=== PATIENT | female | born 1970 | race Caucasian/White ===

== ENCOUNTER 2019-10-09 11:49 | Emergency (ER) | payer OTHER, SELFPAY ==
--- NOTE | ~2019-10-09 | XR_ITS ---
EXAMINATION: XR knee RT min 4V DATE: 10/09/2019 13:51 INDICATION: Chronic right knee pain. TECHNIQUE: 4 views of right knee were obtained. COMPARISON: Right knee radiographs 03/02/2011 FINDINGS: Bone alignment is normal. No fracture. There is mild osteoarthritis of medial and lateral c ompartments and moderate osteoarthritis of patellofemoral compartment. No knee joint effusion. IMPRESSION: 1. Moderate right knee osteoarthritis. Reviewed, dictated and finalized at location A. G[employer] MANU[employer]URING
--- NOTE | ~2019-10-09 | US_ITS ---
EXAMINATION: US venous doppler LE RT DATE: 10/09/2019 13:19 INDICATION: Right lower limb pain and swelling TECHNIQUE: Grayscale ultrasound images without and with compression and Doppler ultrasound images of the right lower extremity veins were obtained. COMPARISON: Right knee radiographs dated 03/02/2011 FINDINGS: The visualized portions of right common femoral vein, profunda (deep) femoral vein, femoral vein, pop liteal vein, peroneal trunk, posterior tibial veins, peroneal veins, gastrocnemius vein and greater s aphenous vein outflow are patent. 3.1 x 1.0 x 2.3 cm Escoto's cyst at the popliteal fossa. Incidental chronic small shadowing heterotopic ossicle in the subcutaneous tissues at the antrum medial aspect o f the proximal right lower leg with correlate seen on the prior radiographs from 2010.. IMPRESSION: 1. No deep venous thrombosis in the right lower limb. 2. Small Escoto's cyst. Reviewed, dictated and finalized at location A. OSURGERY PHYSICIAN
[2019-10-09 12:37] VITALS: BP 175/109; PULSE 72; RESP 18; TEMP 36.4; O2SAT 99
--- NOTE | 2019-10-09 13:32 | ED.EXTPRO ---
HPI - Extremity Problem General Chief complaint: Extremity Injury, Lower Stated complaint: R LEG SWELLING Time Seen by Provider: 10/09/19 13:20 Source: patient and RN notes reviewed Mode of arrival: ambulatory Limitations: no limitations History of Present Illness HPI Narrative: Pt is a 49 y/o female who presents to the ED with c/o intermittent rt lower leg swelling. She notes that she has a Hx of laser surgery on her rt knee. Pt states that she has had intermittent swelling in her rt medial pacheco for awhile. She reports pain in her rt medial pacheco radiating into her rt calf. Pt denies any fever or chills. MD Complaint: extremity swelling Pain Consistency: intermittent Location: right and lower extremity Associated symptoms: other (pain in rt medial pacheco radiating into rt calf) Related Data Allergies Allergy/AdvReac Type Severity Reaction Status Date / Time iodine Allergy Unknown Verified 03/12/18 15:12 latex Allergy Unknown Verified 03/12/18 15:13 Penicillins Allergy Unknown Verified 03/12/18 15:13 Bumble Bee Allergy Unknown UNKNOWN Uncoded 11/06/18 00:03 Review of Systems Review of Systems: All systems reviewed & are unremarkable except as noted in HPI and below Constitutional: Constitutional: Denies chills and Denies fever(s) Cardiovascular: Cardiovascular: Reports leg edema (swelling in rt lower leg) Musculoskeletal: Musculoskeletal: Reports other (pain in rt medial pacheco radiating into rt calf) [facility] Past Medical History Medical History Asthma Back pain Bronchitis Depression GERD (gastroesophageal reflux disease) HTN (hypertension) Osteoarthritis Pneumonia Surgical History Surgical History History of hysterectomy History of placement of ear tubes bilateral ears Hx of cervical discectomy Hx of section x4 Hx of right knee surgery Hx of tonsillectomy Hx of tubal ligation Family History Family History (Updated 03/12/18 @ 15:18 by DOCTOR UNKNOWN) Mother Hypertension Social History Social History Smoking status: Never smoker Alcohol intake: never Gender identity (if verbalized by the patient): Female Comments PCP is Dr. Gaytan. Exam Narrative: Exam Narrative: APPEARANCE: No acute distress, nontoxic, resting in bed Eyes: EOMI HEENT: Normocephalic, atraumatic, RESPIRATORY: No respiratory distress MUSCULOSKELETAl: Tender to palpation of the right medial inferior knee with mild swelling, no overlying ecchymosis and tender over posterior knee, no tenderness over medial lateral knee, full flexion extension over right knee without pain, posterior tibialis pulse 2+, neurovascular intact NEURO: Awake and alert. Following commands, speech normal, no focal deficits SKIN:: Warm, dry. Normal Color no rash or lesions Course Course Emergency Course: Patient states for the past 10 years she has had intermittent swelling in this region that will come and go. Discussed with patient results of workup and diagnosis. Discussed need for follow-up with primary care, proper use of medication, and reasons to return to the emergency department. Patient understands and agrees to current treatment plan Vital Signs Vital signs: Vital Signs Temperature 97.5 F L 10/09/19 12:37 Pulse Rate 72 10/09/19 12:37 Respiratory Rate 18 10/09/19 12:37 Blood Pressure 175/109 H 10/09/19 12:37 Pulse Oximetry 99 10/09/19 12:37 Temperature 97.6 F 10/09/19 13:40 Pulse Rate 70 10/09/19 13:40 Respiratory Rate 16 10/09/19 13:40 Blood Pressure 169/70 H 10/09/19 13:40 Pulse Oximetry 99 10/09/19 13:40 MDM - Extremity (Nontraumatic) Imaging Data Radiologist's impression: Impressions Venous Doppler Study 10/09/19 13:22 IMPRESSION: 1. No deep venous thrombosis in the right lower limb. 2. Small Escoto's cyst. Knee X-Ray 10/09/19 1
[2019-10-09 13:40] VITALS: BP 169/70; PULSE 70; RESP 16; TEMP 36.4; O2SAT 99
== END 2019-10-09 14:31 | disposition home or self-care (01) ==
PROVIDERS: Emergency Provider Emergency Medicine; PCP Family Medicine
DX: M71.21 Synovial cyst of popliteal space [Baker], right knee (principal); I10 Essential (primary) hypertension; M17.11 Unilateral primary osteoarthritis, right knee; J45.909 Unspecified asthma, uncomplicated; K21.9 Gastro-esophageal reflux disease without esophagitis
CPT/HCPCS: 73564; 93971; 99284

== ENCOUNTER 2020-06-01 23:53 | Emergency (ER) | payer OTHER, SELFPAY ==
--- NOTE | ~2020-06-01 | XR_ITS ---
EXAMINATION: XR foot LT min 3V DATE: 06/02/2020 00:22 INDICATION: Dorsal left foot pain TECHNIQUE: Dorsoplantar, two oblique and lateral views of the left foot were obtained. COMPARISON: None. FINDINGS: Alignment is normal. No fracture. For progression of mild to moderate osteoarthritis at the talonavic ular joint with increasing nonuniform joint space narrowing at the dorsal medial side of the joint sp renay and with prominent dorsal marginal osteophytes. Remaining joint spaces appear relatively preserve d. No cortical erosions or periosteal reaction. Moderate-sized Achilles and plantar calcaneal spurs. Soft tissues are unremarkable. No ankle joint effusion. IMPRESSION: 1. Mild to moderate talonavicular osteoarthritis. 2. Achilles and plantar calcaneal enthesophytes. Reviewed, dictated and finalized at location A.
[2020-06-01 23:59] VITALS: BP 149/86; PULSE 85; RESP 18; TEMP 36.9; O2SAT 100
[2020-06-02 00:45] VITALS: BP 164/99; PULSE 96; RESP 18; O2SAT 100
[2020-06-02] MEDS: HYDROcodone/acetaminophen (*CRX) 5-325 MG TABLET 1 TAB PO (01:17)
--- NOTE | 2020-06-02 02:04 | ED.LOWEXIN ---
HPI - Extremity Injury (Lower) General Chief Complaint: Extremity Injury, Lower Stated Complaint: left foot pain Time Seen by Provider: 06/02/20 00:56 History of Present Illness HPI Narrative: Patient is a 49-year-old female who presents ER with left midfoot pain. Reports she has been standing a lot at her new job and is caused increase pain. She can bear weight. 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 No new numbness or tingling. No physical trauma to the foot. Related Data Allergies Allergy/AdvReac Type Severity Reaction Status Date / Time iodine Allergy Unknown Verified 03/12/18 15:12 latex Allergy Unknown Verified 03/12/18 15:13 Penicillins Allergy Unknown Verified 03/12/18 15:13 Bumble Bee Allergy Unknown UNKNOWN Uncoded 11/06/18 00:03 Review of Systems Musculoskeletal: Musculoskeletal: Denies arthralgias and Denies joint swelling Comments: Foot pain Integumentary/Breasts: Skin/Breast: Denies rash Comments: No redness of the foot Neurologic: Denies focal weakness and Denies numbness PMFSH Family History Family History (Updated 03/12/18 @ 15:18 by DOCTOR UNKNOWN) Mother Hypertension Social History Social History Smoking status: Never smoker Alcohol intake: never Gender identity (if verbalized by the patient): Female Exam Narrative: Exam Narrative: GENERAL: Well-appearing, well-nourished, and in no acute distress. HEAD: Normocephalic, atraumatic. EXTREMITIES: Normal range of motion. Mild tenderness over the midfoot on the left at the base of metatarsals 2/3. No plantar tenderness. No ankle tenderness. Normal pulses and sensation. SKIN: Warm, dry, no rash. NEURO: Alert and oriented x3. PSYCH: Normal mood and affect. Course Course Emergency Course: Unremarkable x-ray. Discharge home with a small supply of Savage and steroid burst. Vital Signs Vital signs: Vital Signs Temperature 98.4 F 06/01/20 23:59 Pulse Rate 85 06/01/20 23:59 Respiratory Rate 18 06/01/20 23:59 Blood Pressure 149/86 H 06/01/20 23:59 Pulse Oximetry 100 06/01/20 23:59 Temperature 98.4 F 06/01/20 23:59 Pulse Rate 96 06/02/20 00:45 Respiratory Rate 18 06/02/20 00:45 Blood Pressure 164/99 H 06/02/20 00:45 Pulse Oximetry 100 06/02/20 00:45 MDM - Extremity Injury (Lower) Imaging Data My impression: XR Foot Left: No acute process. Discharge Plan Discharge Clinical Impression: Acute foot pain Patient Disposition: Home, Self-Care Condition: Stable Instructions: Metatarsalgia (DC) Additional Instructions: He may be have recurrent inflammation of the joint in your midfoot. Take the Medrol Dosepak to help with any inflammation and take Savage as needed for pain. You may need to follow-up with your primary care doctor or biofuels processing technician for further treatment and evaluation. Return the ER if you have chest pain with shortness of breath, you cannot keep down food or water, you have additional concerns. Prescriptions: New methylprednisolone [Medrol (Sree)] 4 mg tablets,dose pack See Rx Instructions .ROUTE .COMPLEX Qty: 21 RF: 0 hydrocodone-acetaminophen 5-325 mg tablet 1 tablet PO Q6H PRN (Reason: pain) Qty: 10 RF: 0 Follow-up/Referrals: Lukas,Karlene Jesus MD [Primary Care Provider] - 1 Week
[2020-06-02] MEDS: IBUPROFEN 600 MG TABLET PO (02:18)
[2020-06-02 02:57] VITALS: BP 132/84; PULSE 79; RESP 18; O2SAT 99
== END 2020-06-02 02:59 | disposition home or self-care (01) ==
PROVIDERS: Emergency Provider Emergency Medicine; PCP Family Medicine
DX: M79.672 Pain in left foot (principal)
CPT/HCPCS: 73630; 99283; A9270

== ENCOUNTER 2020-06-09 18:05 | Outpatient (CLI) | payer OTHER, SELFPAY ==
--- NOTE | ~2020-06-09 | XR_ITS ---
EXAMINATION: XR lumbar spine 2-3V DATE: 06/09/2020 18:38 INDICATION: Lumbago and sciatica. TECHNIQUE: 3 views of lumbar spine were obtained. COMPARISON: Lumbar spine radiographs 01/13/2016 FINDINGS: There is 5 degrees levocurvature of lumbar spine. There is 6 mm anterolisthesis of L4 on L5 . Vertebral body heights are normal. There is moderately decreased disc height at L2-L3 and mildly de creased disc height at L4-L5. There are endplate osteophytes at all levels. There is multilevel facet joint osteoarthritis, severe at L4-L5. IMPRESSION: 1. Moderate lumbar spondylosis. Reviewed, dictated and finalized at location A.
== END 2020-06-09 18:06 | disposition home or self-care (01) ==
PROVIDERS: PCP Family Medicine; Visit Provider Physician Assistant
DX: M54.42 Lumbago with sciatica, left side (principal); M47.816 Spondylosis without myelopathy or radiculopathy, lumbar region
CPT/HCPCS: 72100

== ENCOUNTER 2020-11-02 14:01 | Outpatient (CLI) | payer OTHER, SELFPAY ==
--- NOTE | ~2020-11-02 | US_ITS ---
US joint non vasc comp LT 11/02/2020 14:28 Indication: Synovial cyst of the popliteal space Procedure: High-resolution ultrasound of the left popliteal fossa Comparison: No prior studies for comparison. Findings: There is normal heterogeneous echotexture in the popliteal fossa without focal mass, fluid collection or cysts. Impression: 1: Normal soft tissue ultrasound of the left popliteal fossa. Reviewed, dictated and finalized at location A. PRESIDENT FIXED INCOME Impression: 1: Normal soft tissue ultrasound of the left popliteal fossa.
== END 2020-11-02 14:02 | disposition home or self-care (01) ==
PROVIDERS: PCP Family Medicine; Visit Provider Physician Assistant
DX: M71.22 Synovial cyst of popliteal space [Baker], left knee (principal)
CPT/HCPCS: 76881

== ENCOUNTER 2021-04-19 14:15 | Outpatient (RCR) | payer OTHER, SELFPAY ==
--- NOTE | 2021-03-09 09:55 | PTOPEVAL ---
Thank you for referring Erica Lozano to [facility].? The patient is scheduled to be seen for therapy?2 x/week for 6 weeks. Please review, sign, date and return this plan of care CARLOS. I agree with and certify that the following plan of care is medically necessary. Referring Physician Date Attending Provider: Dr Mayco Barnett Problem Diagnosis lumbar radiculopathy Onset 06/16 Additional Evaluation Detail 5 degrees levocurvature of lumbar spine. There is 6 mm anterolisthesis of L4 on L5. Vertebral body heights are normal. There is moderately decreased disc height at L2-L3 and mildly decreased disc height at L4-L5. There are endplate osteophytes at all levels. There is multilevel facet joint osteoarthritis, severe at L4-L5. Subjective Information Pt states she has been having Query Text:As Reported By Patient/ back pain since May 2020 and Family is 1st now being sent to therapy. She had sciatic nerve pain. She was performing exercises provided by MD, but pain was increasing. She was referred to pain management to address her symptoms. She received an injection with only 2 days relief. She was given medication without relief of symptom. She was seen by a chiropractor with only 1 day relief of symptoms. She is unable to perform daily task due to pain. She reports limitations with all daily task, standing, walking. Reports pain radiating from low back to left buttock and leg region. Increased pain with attempting to sleep. She is using a TENS unit with only slight relieft Pain Assessment Pain Scale Used Numeric (1 - 10) Self Report Pain Assessment Lower Back Reported Pain Level 9 Pain Description Burning,Numbness,Radiating, Tingling Pain Radiation Left Leg Pain Frequency Chronic,Continuous Lowest
--- NOTE | 2021-03-30 16:05 | PTOPEVAL ---
Physical therapy progress Note Thank you for referring Erica Lozano to [facility].? Erica has received 6 therapy visits to address her back pain. She is progressing towards her therapy goals with improved pain, improved trunk motion, and improved strength. She is performing her HEP 2x/day. She requires additional skilled therapy services to achieve remaining therapy goals and progress her HEP for discharge. The patient is scheduled to be seen for therapy? 2 x/week for 3 weeks. Attending Provider: Dr. Mayco Barnett MD Diagnosis lumbar radiculopathy Onset 06/16 Additional Evaluation Detail 5 degrees levocurvature of lumbar spine. There is 6 mm anterolisthesis of L4 on L5. Vertebral body heights are normal. There is moderately decreased disc height at L2-L3 and mildly decreased disc height at L4-L5. There are endplate osteophytes at all levels. There is multilevel facet joint osteoarthritis, severe at L4-L5. Subjective Information She reports slight improvement Query Text:As Reported By Patient/ of symptoms with therapy. She Family is performing HEP 2x/day. She remains limited with normal daily task, but she is able to accomplish required task at home without break. She is able to stand for up to 30 min. She is tolerating sleeping longer before pain increases. Reports continued radiating from low back to left buttock and leg region. She is using a TENS unit with only slight relieft Pain Assessment Self Report Pain Assessment Lower Back Reported Pain Level 5 Pain Description Radiating,Sharp Pain Radiation Left Leg Pain Frequency Chronic,Continuous Lowest Pain Intensity 5 Greatest Pain Intensity 8 Pain Aggravating Factors ADL's,Bending,Exercise/ Activity,Lifting,Walking, Weight Bearing/Standing Cervical and Lumbar ROM Lumbar ROM Lumbar Flexion Active Mid Wei:Hands to: Lateral Flexion lateral knee joint line:Active Hands to: Lumbar Comments pain with left lateral flex able to achieve trunk in midline position Cervical and Lumbar Muscle Testing Lumbar Strength Upper Abdominal
--- NOTE | 2021-04-07 11:29 | PCPTNOTE ---
Patient called & cancelled scheduled appointment this date due to in family.
--- NOTE | 2021-04-14 14:48 | PCPTNOTE ---
Patient arrived 1 hour past treatment time. Patient reports she wrote her appointment down at the wrong time and would be at her next appointment on Monday.
--- NOTE | 2021-04-21 12:45 | PCPTNOTE ---
Patient did not show up for scheduled appointment this date. Will plan to DC since this was her 4 no show/cancel visit.
--- NOTE | 2021-04-26 11:15 | PCPTNOTE ---
Admitting Provider: Attending Provider: PHYSICIAN NOT ON STAFF Patient:Erica Lozano Date of :1970 Physical Therapy Discharge Note Patient has not returned for any further treatments since 04/19/2021, therefore she will be discharged at this time. Patient?s initial visit was on 03/09/2021 08:30 and she had a total of 6 visits with 4 no show/cancelled visits. The goals have been not met at this time due to limited therapy visits received. Thank you for referring this patient to [facility]. Please review, sign, date and return this discharge summary CARLOS. I have been updated about the patient's current status and I agree with discharge from the above service at this time. Referring Physician Date
== END 2021-04-26 17:22 | disposition home or self-care (01) ==
LOC: ANHPT 14:15
PROVIDERS: PCP Family Medicine
DX: M54.16 Radiculopathy, lumbar region (principal)
CPT/HCPCS: 97014; 97110; 97140; 97162; 97163; G0283

== ENCOUNTER 2021-07-20 15:00 | Outpatient (RCR) | payer OTHER, SELFPAY ==
--- NOTE | 2021-07-14 16:05 | PTOPEVAL ---
Thank you for referring Erica Lozano to [facility].? The patient is scheduled to be seen for therapy? 1-2 x/week for 6 weeks. Please review, sign, date and return this plan of care CARLOS. I agree with and certify that the following plan of care is medically necessary. Referring Physician Date Referring Provider: Dr. Agnes Monteiro MD Diagnosis morbid obesity Onset 06/16 Additional Evaluation Detail Pt was seen for 9 previous therapy visits to address chronic back pain. X-ray: There is 5 degrees levocurvature of lumbar spine. There is 6 mm anterolisthesis of L4 on L5. Vertebral body heights are normal. There is moderately decreased disc height at L2-L3 and mildly decreased disc height at L4-L5. There are endplate osteophytes at all levels. There is multilevel facet joint osteoarthritis, severe at L4-L5. IMPRESSION: Subjective Information She is not performing her HEP Query Text:As Reported By Patient/ from previous therapy. She Family does not perform a walking or fitness program. She reports she has constant pain that improves only with ice and medication. Her MD wants her to have pool therapy for weight loss to attempt back surgery next surgery. She did use a rollator last year due to pain. Her daughter performs scrap preparation supervisor. Cooking is microwave cooking. She performs limited community walking due to pain. She is limited with prolonged standing, sitting, and lifting task. Pain Assessment Lower Back Reported Pain Level 7 Pain Description Numbness,Radiating,Sharp, Tingling Pain Radiation Left Leg Radicular Pain Location to upper leg Pain Frequency Chronic,Continuous Lowest Pain Intensity 5 Greatest Pain Intensity 9 Pain Aggravating Factors B
--- NOTE | 2021-07-27 13:32 | PCPTNOTE ---
Patient called & cancelled scheduled appointment this date due to not feeling well. This is Pt's first CX.
--- NOTE | 2021-07-29 14:56 | PCPTNOTE ---
Patient called & cancelled scheduled appointment this date due to falling asleep and being unable to make it in time for her appointment.
--- NOTE | 2021-08-11 10:12 | PCPTNOTE ---
Patient did not show up for scheduled appointment this date. Called & had to leave a message.
--- NOTE | 2021-08-16 13:44 | PCPTNOTE ---
Patient did not show up for scheduled appointment this date; left voicemail for reminder on next appointment , August 24 @ 12:30, stating if she is not present for next appointment she will be discharged and will then need a new order to return to therapy. Also, left call back number if she had any further questions.
--- NOTE | 2021-08-24 12:44 | PCPTNOTE ---
Patient did not show up for scheduled appointment this date. Will DC pt, due to exceeding no show/cancelation policy.
--- NOTE | 2021-08-24 12:49 | PCPTNOTE ---
Admitting Provider: Attending Provider: Dr. Agnes Monteiro Patient:Erica Lozano Date of :1970 Physical Therapy Discharge Summary Patient has not returned for any further treatments since 07/20/2021, therefore she will be discharged at this time. Patient?s initial visit was on 07/14/2021 14:30 and she had a total of 2 visits with 3 cancelled visits and 3 no show. . The goals have been not met due to attending only 2 visits. Thank you for referring this patient to [facility]. Please review, sign, date and return this discharge summary CARLOS. I have been updated about the patient's current status and I agree with discharge from the above service at this time. Referring Physician Date
== END 2021-08-24 15:48 | disposition home or self-care (01) ==
LOC: ANHPT 15:00
PROVIDERS: PCP Family Medicine
DX: E66.01 Morbid (severe) obesity due to excess calories (principal)
CPT/HCPCS: 97113; 97163

== ENCOUNTER 2021-08-06 14:52 | Outpatient (CLI) | payer OTHER, SELFPAY ==
--- NOTE | 2021-08-06 15:26 | ECG_ITS ---
Measurements Intervals [place] Rate: 63 P: 37 NV: 166 QRS: -24 QRSD: 86 T: 46 QT: 402 QTc: 415 Interpretive Statements SINUS RHYTHM LOW QRS VOLTAGE IN PRECORDIAL LEADS VOLTAGE CRITERIA FOR LVH BORDERLINE R WAVE PROGRESSION, ANTERIOR LEADS INFERIOR INFARCT, AGE INDETERMINATE BASELINE ARTIFACT- I, III, AVL, AVF ABNORMAL ECG Electronically Signed On 08-06-2021 16:39:02 MANUFACTURING AREA MANAGER by Get Aguero D.O.
== END 2021-08-06 14:53 | disposition home or self-care (01) ==
LOC: ANHIMG 14:55
PROVIDERS: PCP Physician Assistant; Visit Provider Physician Assistant
DX: Z51.81 Encounter for therapeutic drug level monitoring (principal); Z79.899 Other long term (current) drug therapy; R94.31 Abnormal electrocardiogram [ECG] [EKG]
CPT/HCPCS: 93005

== ENCOUNTER 2022-05-19 16:33 | Observation (INO) | payer OTHER, SELFPAY ==
--- NOTE | ~2022-05-19 | CT_ITS ---
EXAMINATION: CT abdomen pelvis wo con DATE: 05/19/2022 22:48 INDICATION: Left upper quadrant pain. Flank pain. Fatigue. TECHNIQUE: Computed tomography (CT) of the abdomen and pelvis was performed without intravenous contr ast. The dose-length product was 1731.84 mGy-cm. Automated exposure control and iterative reconstruct ion technique were employed. COMPARISON: CT dated 11/06/2018. FINDINGS: There is a stable 5 mm fissural nodule on the left. Dependent atelectasis of the lung bases . Heart size normal. No significant pleural or pericardial effusion. No significant vascular abnormal ity. No lymphadenopathy. Normal appendix. The liver, spleen, adrenal glands and left kidney are unremarkable. There is a 3 mm nonobstructing ri ght renal stone. There is thickening of the pancreatic head with surrounding inflammation, consistent with acute pancreatitis. Nonobstructive bowel gas pattern. No abnormal pelvic masses or fluid collec tions. No lymphadenopathy. Mild lumbar spondylosis. Mild osteoarthritis of the hips. Status post hyst erectomy. IMPRESSION: 1. Acute pancreatitis. 2: Nonobstructing right nephrolithiasis. Reviewed, dictated and finalized at location A.
[2022-05-19 17:05] VITALS: BP 175/100; PULSE 84; RESP 20; TEMP 36.5; O2SAT 99
[2022-05-19 17:26] LABS: Basophils Percent Auto 0.4 % (0.2-1.2); Eosinophils Absolute Auto 0.2 K/mm3 (0-0.3); Hematocrit 45.8 % (37.0-47.0); Immature Granulocyte Absolute 0.04 K/mm3 (0.00-0.031); Immature Granulocyte Percent A 0.5 % (0-0.5); Lymphocytes Percent Auto 19.6 % (18.3-44.2); Mean Corpuscular HGB Conc 32.8 g/dl (32-36); Mean Corpuscular Hemoglobin 29.9 pg (26-34); Mean Corpuscular Volume 91.2 fl (80-100); Mean Platelet Volume 10.2 fl (7.4-10.4); Monocytes Absolute Auto 0.5 K/mm3 (0.1-0.6); Neutrophils Absolute Auto 5.8 K/mm3 (1.3-6.7); Neutrophils Percent Auto 71.5 % (45.5-73.1); Platelet Count Result 229 k/mm3 (150-375); Red Blood Count 5.02 M/mm3 (4.2-5.4); Red Cell Distribution Width 14.2 % (11.5-14.5); White Blood Count 8.2 K/mm3 (4.5-10.0)
[2022-05-19 17:30] LABS: Alanine Aminotransferase 34 U/L (6-35); Albumin Level 4.3 g/dL (3.5-5.1); Alkaline Phosphatase 127 U/L (38-126); Anion Gap 9 mmol/L (8-16); Aspartate Amino Transferase 33 U/L (14-36); Bilirubin,Total 0.9 mg/dL (0.2-1.3); Blood Urea Nitrogen 12 mg/dL (7-17); Calcium 9.7 mg/dL (8.4-10.2); Carbon Dioxide 29 mmol/L (22-30); Chloride 101 mmol/L (98-107); Estimated CRCL calculation 146 ml/min; Estimated Glomerular Filt Rate > 60; Glucose 102 mg/dL (65-110); Lipase 56 U/L (23-300); Potassium 3.3 mmol/L (3.4-5.0); Sodium 139 mmol/L (137-145)
[2022-05-19 17:40] LABS: Appearance Urine Cloudy (Clear); Bilirubin Urine 3+ (Negative); Color Urine Amber (Yellow); Glucose Urine UA Negative (Negative); Ketones Urine 4+ mg/dL (Negative); Leukocyte Esterase Ur Negative LEU/UL (Negative); Nitrate Urine Negative (Negative); Protein Urine 2+ mg/dL (Negative); Specific Grav Ur 1.025 (1.001-1.035)
[2022-05-19 17:53] LABS: Add Urine Microscopic? YES; Blood Urine Trace-Intact (Negative)
[2022-05-19 17:55] LABS: Bacteria Urine Trace /hpf; Mucus Urine Heavy /lpf; Squamous Epithelial Cell Urine Many /hpf (Few); WBC Urine 21-30 /hpf
--- NOTE | 2022-05-19 19:12 | ED.ABDPAIN ---
HPI - Abdominal Pain General Chief Complaint: Abdominal Pain <Sveta Garnica MD - Last Filed: 06/06/22 12:04> Stated Complaint: upper abd pain x 3 days <Sveta Garnica MD - Last Filed: 06/06/22 12:04> Time Seen by Provider: 05/19/22 19:11 <Sveta Garnica MD - Last Filed: 06/06/22 12:04> History of Present Illness HPI narrative: Patient is a 51-year-old female with a history of hypertension, hyperlipidemia presenting with abdominal pain. Patient states that for the last 2 days she has had left upper quadrant pain that radiates to her epigastrium and right upper quadrant. States that it is associated with nausea and decreased appetite. Denies vomiting. Patient states that she had a normal bowel movement this morning. She denies fevers, headache, chest pain, shortness of breath, cough, flank pain, dysuria, leg swelling. <Sveta Garnica MD - Last Filed: 06/06/22 12:04> Related Data Home Medications: Home Medications Medication Instructions Recorded Confirmed albuterol sulfate 2.5 mg/3 mL 2.5 mg inhalation Q4H PRN SOB 05/20/22 05/20/22 (0.083 %) solution for nebulization celecoxib 100 mg capsule 100 mg PO BID 05/20/22 05/20/22 hydrochlorothiazide 25 mg tablet 25 mg PO DAILY 05/20/22 05/20/22 hydrocodone 5 mg-acetaminophen 325 1 tablet PO Q6H PRN Pain (Scale 05/20/22 05/20/22 mg tablet Score 4-6) pregabalin 200 mg capsule 200 mg PO BID 05/20/22 05/20/22 <Sveta Garnica MD - Last Filed: 06/06/22 12:04> Allergies/Adverse Reactions: Allergies Allergy/AdvReac Type Severity Reaction Status Date / Time iodine Allergy Unknown Rash Verified 05/19/22 19:29 latex Allergy Unknown Unknown Verified 05/19/22 19:29 Penicillins Allergy Unknown Unknown Verified 05/19/22 19:29 Bumble Bee Allergy Unknown UNKNOWN Uncoded 11/06/18 00:03 <Sveta Garnica MD - Last Filed: 06/06/22 12:04> Review of Systems Review of Systems: All systems reviewed & are unremarkable except as noted in HPI and below <Sveta Garnica MD - Last Filed: 06/06/22 12:04> PMFSH Past Medical History Medical History: Medical History (Updated 05/20/22 @ 06:19 by KELLY Prakash) Asthma Back pain Bronchitis Depression She stated that she was depressed after she got . GERD (gastroesophageal reflux disease) HTN (hypertension) No longer taking medication Osteoarthritis Pneumonia <Sveta Garnica MD - Last Filed: 06/06/22 12:04> Surgical History Surgical History: Surgical History (Updated 05/20/22 @ 00:51 by Janet Juares NP) History of hysterectomy History of placement of ear tubes bilateral ears Hx of cervical discectomy Hx of section x4 Hx of cholecystectomy Hx of right knee surgery Hx of tonsillectomy Hx of tubal ligation <Sveta Garnica MD - Last Filed: 06/06/22 12:04> Family History Family History: Family History Mother Hypertension <Sveta Garnica MD - Last Filed: 06/06/22 12:04> Social History Social History: Social History (Updated 05/20/22 @ 00:55 by Janet Juares NP) Social History: The patient is and has 4 children. She lives home alone. She is disabled. She denies ever smoking. She rarely drinks. She denies any marijuana or other illicit drugs. She does not have a durable power hand clerical verifier for healthcare. Code status full code Smoking status: Never smoker Alcohol intake: never Substance use: never Gender identity (if verbalized by the patient): Female Spiritual care concerns: No <Sveta Garnica MD - Last Filed: 06/06/22 12:04> Exam Narrative: GENERAL: Well-appearing, well-nourished, and in no acute distress. HEAD: Normocephalic, atraumatic. EYES: PERRLA and EOMI. ENT: Nares clear, no rhinorrhea or epistaxis. Mucous membranes moist. NECK: Supple. CHEST: Clear to auscultation. No respiratory distress.
[2022-05-19] MEDS: SODIUM CHLORIDE 0.9% IV 1,000 ML 999 ML IV CONT (19:42)
[2022-05-19] MEDS: ONDANSETRON INJ 4 MG/2 ML VIAL IV PUSH (19:42)
[2022-05-19] MEDS: fentaNYL CITRATE INJ (*CRX) 100 MCG/2 ML VIAL IV PUSH ×2 (19:42→21:41)
[2022-05-19] MEDS: BELLADONNA ALK/PHENOB ELIX 10 ML, MAG HYDROX/ALUMINUM HYD/SIMETH 30 ML, LIDOCAINE HCL 2... PO (21:40)
[2022-05-19] MEDS: FAMOTIDINE 20 MG/2 ML VIAL IV PUSH (21:41)
[2022-05-19] MEDS: LORazepam INJ (*CRX) 2 MG/ML VIAL 1 MG IV PUSH (22:39)
[2022-05-19 22:42] VITALS: BP 146/89; PULSE 100; RESP 18; O2SAT 98
[2022-05-19 22:50] VITALS: PULSE 84; RESP 16; O2SAT 84
[2022-05-19 23:47] VITALS: PULSE 94; O2SAT 100
--- NOTE | 2022-05-19 23:53 | PC.NURSE ---
Dr. Johnston requesting to hold PO abx at this time
--- NOTE | 2022-05-20 00:30 | PM.IMHP ---
H&P: HPI History of Present Illness Date/Time: 05/20/22 00:30 Chief Complaint: Abdominal pain Narrative: This is a 51-year-old female patient who has a BMI of 57.9. She has a history of hypertension, hyperlipidemia, and depression. The patient came into the emergency room with complaint of left upper quadrant pain that radiates to her epigastric and walk right upper quadrant that started 2 days ago. It is associated with nausea and decreased appetite. The patient denies any diarrhea or vomiting. She had a normal bowel movement this morning. No fever or chills or chest pain or shortness of breath. No difficulty urinating or any leg swelling. Potassium is slightly low at 3.3. Lipase was normal. She had 2+ protein and 4+ ketones. Urine bilirubin 3+. She had many squamous cell epithelium which leads me to believe that this is just a urinary contaminant. Her COVID test is pending. Patient's CT of the abdomen was read as acute pancreatitis nonobstructing right nephrolithiasis. Which is 3 mm. The patient was given IV fluids, fentanyl, Pepcid, GI cocktail, Ativan, and Bactrim DS. The patient is being admitted to observation status on the date of service of 05/20/2022. Review of Systems Review of Systems: See HPI All systems reviewed & are unremarkable except as noted in HPI and below Constitutional: Constitutional: Reports as per HPI and Reports no additional constitutional complaints Eyes: Eyes: Reports as per HPI and Reports no additional eye complaints ENT: Reports system reviewed and no additional complaints, except as documented and Reports Normal hearing present Cardiovascular: Cardiovascular: Reports no additional cardiovascular complaints Respiratory: Respiratory: Reports no additional respiratory complaints and Reports no additional respiratory complaints Gastrointestinal: Gastrointestinal: Reports as per HPI and Reports no additional gastrointestinal complaints Musculoskeletal: Musculoskeletal: Reports no additional musculoskeletal complaints Integumentary/Breasts: Skin/Breast: Reports system reviewed and no additional complaints, except as docu and Reports as per HPI Neurologic: Reports system reviewed and no additional complaints, except as documented, Reports as per HPI and Reports Normal hearing present Psychiatric: Psychiatric: Reports no additional psychiatric complaints and Reports as per HPI Endocrine: Endocrine: Reports no additional endocrine complaints Hematologic/Lymphatic: Hematologic/Lymphatic: Reports no additional hematologic/lymphatic complaints Allergic/Immunologic: Allergic/Immunologic: Reports no additional allergic/immunologic complaints [facility] Past Medical History Medical History (Updated 05/20/22 @ 01:06 by Janet Juares NP) Asthma Back pain Bronchitis Depression She stated that she was depressed after she got . GERD (gastroesophageal reflux disease) HTN (hypertension) No longer taking medication Osteoarthritis Pneumonia Surgical History Surgical History (Updated 05/20/22 @ 00:51 by Janet Juares NP) History of hysterectomy History of placement of ear tubes bilateral ears Hx of cervical discectomy Hx of section x4 Hx of cholecystectomy Hx of right knee surgery Hx of tonsillectomy Hx of tubal ligation Family History Family History Mother Hypertension Social History Social History (Updated 05/20/22 @ 00:55 by Janet Juares NP) Social History: The patient is and has 4 children. She lives home alone. She is disabled. She denies ever smoking. She rarely drinks. She denies any marijuana or other illicit drugs. She does not have a durable power nurses' association counselor for healthcare. Code status full code Smoking status: Never smoker Alcohol intake: never Substance use: never Gender identity (if verbalized by the patient): Female Spiritual care concerns: No Meds H
[2022-05-20 00:43] VITALS: BP 140/85; PULSE 90; RESP 20; O2SAT 100
[2022-05-20 00:55] VITALS: BP 113/74; PULSE 105; RESP 18; TEMP 36.7; O2SAT 96; BMI 57.0
--- NOTE | 2022-05-20 01:02 | ADMGEN ---
This patient, Erica Lozano, was admitted to Medical Room 261-01. Patient/family oriented to hospital policies and general routines including ID bracelet, bed and alarms, visiting hours, pain management, procedures, bathroom and other care routines, personal items, smoking policy, room service/diet, and visiting hours. Information on how to activate the Rapid Response Team has been discussed. Patient/Family are encouraged to report perceived risks to care and to ask questions if they do not understand what they are told or what they should do.
[2022-05-20 01:17] LABS: SARS-CoV-2 RNA PCR Negative
[2022-05-20] MEDS: LACTATED RINGERS 1,000 ML 125 ML IV CONT (01:36)
[2022-05-20] MEDS: fentaNYL CITRATE INJ (*CRX) 100 MCG/2 ML VIAL 50 MCG IV PUSH (01:37)
[2022-05-20] MEDS: KCL 20 MEQ/SW 100 ML 100 ML 50 MEQ IVPB (01:44)
[2022-05-20 05:21] VITALS: BP 139/84; PULSE 105; RESP 20; TEMP 37.1; O2SAT 95
--- NOTE | 2022-05-20 06:16 | PM.IMPN ---
Progress Note: A&P Assessment and Plan (1) Pancreatitis: Code(s): K85.90 - Acute pancreatitis without necrosis or infection, unspecified Status: Acute Assessment and Plan: -Lipase normal on arrival, today -lipid profile -the patient denies any alcohol use. -CT of the abdomen was read as acute pancreatitis. -bowel rest she is NPO. -IV fluids for hydration -continue with analgesics -No new medication that could be causing pancreatitis. -the patient was given a GI cocktail without any relief in the emergency room. -continue with IV Pepcid. (2) Hypokalemia: Code(s): E87.6 - Hypokalemia Status: Acute Assessment and Plan: -3.3 on admission -Replaced with 20meq -check magnesium. -Trend potassium -replace potassium as necessary (3) GERD (gastroesophageal reflux disease): Code(s): K21.9 - Gastro-esophageal reflux disease without esophagitis Status: Acute Assessment and Plan: Hx of GERD IV famotidine on board Omeprazole at home Time Spent With Patient Time with patient: Greater than 35 minutes Subjective Date/time seen: 05/20/22 06:16 Interval history: 05/20/22 05/20/22? 00:30 This is a 51-year-old female patient who has a BMI of 57.9.? She has a history of hypertension, hyperlipidemia, and depression.? The patient came into the emergency room with complaint of left upper quadrant pain that radiates to her epigastric and walk right upper quadrant that started 2 days ago.? It is associated with nausea and decreased appetite.? The patient denies any diarrhea or vomiting.? She had a? normal bowel movement this morning.? No fever or chills or chest pain or shortness of breath.? No difficulty urinating or any leg swelling.? Potassium is slightly low at 3.3.? Lipase was normal.? She had 2+ protein and 4+ ketones.? Urine bilirubin 3+.? She had many squamous cell epithelium which leads me to believe that this is just a urinary contaminant.? Her COVID test is pending.? Patient's CT of the abdomen was read as acute pancreatitis nonobstructing right nephrolithiasis.? Which is 3 mm.? The patient was given IV fluids, fentanyl, Pepcid, GI cocktail, Ativan, and Bactrim DS.? The patient is being admitted to observation status on the date of service of 05/20/2022. Review of Systems Review of Systems: All systems reviewed & are unremarkable except as noted in HPI and below Exam Const: General: cooperative, healthy appearing, comfortable, no acute distress, well developed, alert, awake, Physically active and Cushingoid facies Nutritional Appearance: obese Orientation/consciousness: oriented to person, oriented to place, oriented to time and patient oriented x3 Limitations: no limitations HENMT: Head: normal to inspection, No palpable skull fracture present, normocephalic, atraumatic and abrasion Ears: hearing grossly normal bilaterally and external ears normal General nose exam: Normal external nose present and Normal nares present Mouth: Yes Normal oral and palatal mucosa present Eyes: General: appearance normal, both eyes and all related structures Alignment and Position: alignment normal Periorbital: periorbital findings normal Eyelids: eyelids normal Sclera: sclerae normal Cornea: corneas normal Pupils: Equal, round and reactive pupils present EOM: EOMs intact bilaterally Neck: Neck: normal visual inspection, full ROM, no lymphadenopathy, trachea midline and supple Chest: Chest palpation & inspection: normal inspection of the chest Resp: Effort & Inspection: normal respiratory effort Cardio: Palpation: normal PMI Rate: regular rate Rhythm: regular rhythm Heart sounds: S1 normal heart sound present and S2 normal heart sound present Peripheral pulses: Peripheral pulses 2+ throughout GI: Inspection: normal to inspection Auscultation: normal bowel sounds Rectal Exam: deferred Other: Tenderness under left breast. Back/Spine/Pelvis:
[2022-05-20 07:08] LABS: Basophils Percent Auto 0.3 % (0.2-1.2); Eosinophils Absolute Auto 0.2 K/mm3 (0-0.3); Hematocrit 42.5 % (37.0-47.0); Hemoglobin 13.5 g/dL (12.0-15.0); Immature Granulocyte Absolute 0.03 K/mm3 (0.00-0.031); Immature Granulocyte Percent A 0.4 % (0-0.5); Lymphocytes Absolute Auto 1.33 K/mm3 (0.9-3.2); Lymphocytes Percent Auto 19.1 % (18.3-44.2); Mean Corpuscular HGB Conc 31.8 g/dl (32-36); Mean Corpuscular Hemoglobin 29.2 pg (26-34); Mean Corpuscular Volume 91.8 fl (80-100); Mean Platelet Volume 10.8 fl (7.4-10.4); Monocytes Absolute Auto 0.5 K/mm3 (0.1-0.6); Monocytes Percent Auto 7.2 % (2.6-8.5); Neutrophils Absolute Auto 4.9 K/mm3 (1.3-6.7); Platelet Count Result 218 k/mm3 (150-375); Red Blood Count 4.63 M/mm3 (4.2-5.4); Red Cell Distribution Width 14.3 % (11.5-14.5)
[2022-05-20 07:14] LABS: Lactic Acid Reflex 0.8 mmol/L (0.7-2.0)
[2022-05-20 07:27] LABS: Alanine Aminotransferase 29 U/L (6-35); Albumin Level 3.8 g/dL (3.5-5.1); Alkaline Phosphatase 119 U/L (38-126); Anion Gap 7 mmol/L (8-16); Aspartate Amino Transferase 29 U/L (14-36); Bilirubin,Total 0.8 mg/dL (0.2-1.3); Blood Urea Nitrogen 15 mg/dL (7-17); Calcium 9.2 mg/dL (8.4-10.2); Carbon Dioxide 29 mmol/L (22-30); Chloride 103 mmol/L (98-107); Cholesterol 167 mg/dL (0-200); Creatine Kinase 53 U/L (30-135); Estimated CRCL calculation 145 ml/min; Estimated Glomerular Filt Rate > 60; Glucose 95 mg/dL (65-110); HDL Direct 54 mg/dL; Lipase 56 U/L (23-300); Magnesium 2.1 mg/dL (1.6-2.3); Potassium 3.5 mmol/L (3.4-5.0); Sodium 139 mmol/L (137-145); Triglycerides 81 mg/dL (<150)
[2022-05-20 07:35] LABS: LDL Cholesterol Direct 86 mg/dL
[2022-05-20 07:43] LABS: CRP 21.3 mg/dL (<1.0)
[2022-05-20] MEDS: FAMOTIDINE 20 MG/2 ML VIAL IV PUSH (08:03)
--- NOTE | 2022-05-20 11:15 | PM.DS ---
DS: Admitting Diagnosis Discharge Date 05/20/22 1115 Admitting Diagnosis Acute pancreatitis DS: Discharge Diagnosis Discharge Diagnosis (1) Pancreatitis: Code(s): K85.90 - Acute pancreatitis without necrosis or infection, unspecified Status: Acute Assessment and Plan: -Lipase normal on arrival, today -lipid profile -the patient denies any alcohol use. -CT of the abdomen was read as acute pancreatitis. -bowel rest she is NPO. -IV fluids for hydration -continue with analgesics -No new medication that could be causing pancreatitis. -the patient was given a GI cocktail without any relief in the emergency room. -continue with IV Pepcid. (2) Hypokalemia: Code(s): E87.6 - Hypokalemia Status: Acute Assessment and Plan: -3.3 on admission -Replaced with 20meq -check magnesium. -Trend potassium -replace potassium as necessary (3) GERD (gastroesophageal reflux disease): Code(s): K21.9 - Gastro-esophageal reflux disease without esophagitis Status: Acute Assessment and Plan: Hx of GERD IV famotidine on board Omeprazole at home DS: Summary Hospital Course Hospital Course: Patient is a 51-year-old female with a past medical history of hypertension, hyperlipidemia, depression who came to the emergency room with complaint of left upper quadrant pain that radiates to her epigastric it this started about 2 days ago. Patient stated that on Monday she had chicken salad that she made from can chicken and taste really good but when she went to bed she felt okay and she woke up feeling really lousy the next day. The pain persisted which brought her to the hospital. CT of the abdomen and pelvis was read is cute pancreatitis nonobstructing right nephrolithiasis. A upon arrival patient was given IV fluids, fentanyl, Pepcid, GI cocktail, Ativan and Bactrim which did not suffice and created admission. Currently patient is doing better and is wanting to eat. She denies any pain and states that she has not had pain all night. She denies any chest pain, shortness of breath, nausea, vomiting, diarrhea, constipation, weakness or fatigue. She is able to keep ice chips down in eat and drink. Labs and vital signs are stable at this time. Patient is stable for discharge. All questions were answered and patient has been advised to stick to a low-fat diet for while. Status at Discharge Functional status at discharge: independent ambulation Overall status at discharge: patient is progressing back to baseline Time Spent with Patient Time attestation: Total time spent providing and/or coordinating discharge services: 37 minutes Time spent: Greater than 30 minutes Specific discharge activities: Diagnostic testing, chart review, developing a treatment plan, education, care coordination documentation, physical exam, result review Exam Const: General: cooperative, healthy appearing, comfortable, no acute distress, well developed, alert, awake, Physically active, Cushingoid facies and tired appearing Nutritional Appearance: obese Orientation/consciousness: oriented to person, oriented to place, oriented to time and patient oriented x3 Limitations: no limitations HENMT: Head: normal to inspection, No palpable skull fracture present, normocephalic, atraumatic and abrasion Ears: hearing grossly normal bilaterally and external ears normal General nose exam: Normal external nose present and Normal nares present Mouth: Yes Normal oral and palatal mucosa present Eyes: General: appearance normal, both eyes and all related structures Alignment and Position: alignment normal Periorbital: periorbital findings normal Eyelids: eyelids normal Sclera: sclerae normal Cornea: corneas normal Pupils: Equal, round and reactive pupils present EOM: EOMs intact bilaterally Neck: Neck: normal visual inspection, full ROM, no lymphadenopathy, trachea midline and supple Chest: Chest palpat
[2022-05-20 13:52] VITALS: BP 140/79; PULSE 89; RESP 18; TEMP 36.4; O2SAT 96
== END 2022-05-20 17:10 | disposition home or self-care (01) ==
LOC: ANHED 23:57 → ANH2MED 05-20 00:59
PROVIDERS: Emergency Medicine; Nurse Practitioner; Admitting Provider Internal Medicine; Emergency Provider Emergency Medicine; PCP Physician Assistant; Visit Provider Nurse Practitioner
DX: K85.90 Acute pancreatitis without necrosis or infection, unspecified (principal); E87.6 Hypokalemia; K21.9 Gastro-esophageal reflux disease without esophagitis; N20.0 Calculus of kidney; I10 Essential (primary) hypertension; E78.5 Hyperlipidemia, unspecified; R63.0 Anorexia; Z68.43 Body mass index [BMI] 50.0-59.9, adult; J45.909 Unspecified asthma, uncomplicated; F32.A Depression, unspecified; Z90.49 Acquired absence of other specified parts of digestive tract; Z20.822 Contact with and (suspected) exposure to COVID-19; Z79.899 Other long term (current) drug therapy; Z79.51 Long term (current) use of inhaled steroids; Z79.891 Long term (current) use of opiate analgesic; Z82.49 Family history of ischemic heart disease and other diseases of the circulatory system
CPT/HCPCS: 36415; 74176; 80053; 80061; 81001; 82550; 83605; 83690; 83735; 84443; 85025; 86140; 87086; 87088; 96374; 96375; 96376; 99285; A9270; C9803; G0378; G0379; J2060; J2405; J3010; J3480; J7030; J7120; U0003; U0005

== ENCOUNTER 2022-07-16 19:53 | Emergency (ER) | payer OTHER, SELFPAY ==
--- NOTE | ~2022-07-16 | XR_ITS ---
EXAMINATION: XR chest 2V DATE: 07/16/2022 21:52 INDICATION: 2 weeks of cough. Chest and back pain. TECHNIQUE: frontal and lateral views of the chest were obtained. COMPARISON: Chest radiograph dated 11/21/2018 FINDINGS: The lungs are clear with no focal airspace opacities, pulmonary edema, pleural effusion or pneumothor ax. The cardiomediastinal silhouette is normal. Small metallic BB versus biopsy markers are seen in t he upper inner quadrant of the left breast. Partially visualized interbody fusion devices and anterio r plate-screw fixation for lower cervical anterior spinal fusion. Trace IMPRESSION: 1. No acute cardiopulmonary disease. Reviewed, dictated and finalized at location A. 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
[2022-07-16 19:58] VITALS: BP 158/115; PULSE 112; RESP 20; TEMP 36.6; O2SAT 97
--- NOTE | 2022-07-16 20:12 | ED.GENADULT ---
HPI - General Adult General Chief complaint: Abdominal Pain Stated complaint: Rib pains with history of pancreatitis Time Seen by Provider: 07/16/22 19:57 History of Present Illness HPI narrative: 51-year-old female history of hypertension And asthma presents to the emergency room for evaluation of back pain that radiates around to her chest. Patient states that she has been recovering from a URI, endorses coughing and postnasal drip for over 2 weeks. Patient had a chest x-ray performed yesterday outside emergency room. Is planning on having a PFT evaluated next week. Patient states the back pain is sharp and is worse with inspiration. Patient denies any chest pain, shortness of breath or dyspnea. Reports taking her albuterol nebulizer machine once a day first thing in the morning. Denies fevers. Related Data Home Medications Medication Instructions Recorded Confirmed albuterol sulfate 2.5 mg/3 mL 2.5 mg inhalation Q4H PRN SOB 05/20/22 05/20/22 (0.083 %) solution for nebulization celecoxib 100 mg capsule 100 mg PO BID 05/20/22 05/20/22 hydrochlorothiazide 25 mg tablet 25 mg PO DAILY 05/20/22 05/20/22 hydrocodone 5 mg-acetaminophen 325 1 tablet PO Q6H PRN Pain (Scale 05/20/22 05/20/22 mg tablet Score 4-6) pregabalin 200 mg capsule 200 mg PO BID 05/20/22 05/20/22 Allergies Allergy/AdvReac Type Severity Reaction Status Date / Time iodine Allergy Unknown Rash Verified 07/16/22 20:01 latex Allergy Unknown Unknown Verified 07/16/22 20:01 Penicillins Allergy Unknown Unknown Verified 07/16/22 20:01 Bumble Bee Allergy Unknown UNKNOWN Uncoded 11/06/18 00:03 Review of Systems Review of Systems: CONSTITUTIONAL: Denies fever, chills, or sweats. EYES: Denies visual changes, redness, or discharge. ENT: Denies rhinorrhea, congestion, sore throat, or otalgia. CARDIOVASCULAR: Denies chest pain, palpitations, or edema. RESPIRATORY: Reports dyspnea and cough. GASTROINTESTINAL: Denies abdominal pain, nausea, vomiting, or diarrhea. GENITOURINARY: Denies dysuria or hematuria. SKIN: Denies rash or itching. MUSCULOSKELETAL: Denies back pain, joint pain, or myalgia. NEUROLOGIC: Denies headache, numbness, dizziness, or weakness. PSYCHIATRIC: Denies anxiety or depression. [facility] Past Medical History Medical History Asthma Back pain Bronchitis Depression She stated that she was depressed after she got . GERD (gastroesophageal reflux disease) HTN (hypertension) No longer taking medication Osteoarthritis Pneumonia Surgical History Surgical History History of hysterectomy History of placement of ear tubes bilateral ears Hx of cervical discectomy Hx of section x4 Hx of cholecystectomy Hx of right knee surgery Hx of tonsillectomy Hx of tubal ligation Family History Family History Mother Hypertension Social History Social History Social History: The patient is and has 4 children. She lives home alone. She is disabled. She denies ever smoking. She rarely drinks. She denies any marijuana or other illicit drugs. She does not have a durable power outpatient program coordinator for healthcare. Code status full code Smoking status: Never smoker Alcohol intake: never Substance use: never Gender identity (if verbalized by the patient): Female Spiritual care concerns: No Exam Narrative: GENERAL: Well-appearing, well-nourished, no physical limitations, and in no acute distress. HEAD: Normocephalic, atraumatic. EYES: Conjunctivae normal, PERRLA and EOMI. CHEST: Clear to auscultation. No respiratory distress. No wheezes rales or rhonchi. Posterior rib cage tenderness extending anteriorly to the lower ribs. No bony abnormalities. HEART: Regular rate and rhythm. No murmur heard. Normal periph
[2022-07-16 20:30] LABS: Basophils Percent Auto 0.3 % (0.2-1.2); Eosinophils Absolute Auto 0.1 K/mm3 (0-0.3); Eosinophils Percent Auto 0.7 % (0-4.4); Hematocrit 44.5 % (37.0-47.0); Hemoglobin 14.7 g/dL (12.0-15.0); Immature Granulocyte Absolute 0.03 K/mm3 (0.00-0.031); Immature Granulocyte Percent A 0.3 % (0-0.5); Lymphocytes Absolute Auto 1.15 K/mm3 (0.9-3.2); Lymphocytes Percent Auto 11.2 % (18.3-44.2); Mean Corpuscular Hemoglobin 29.8 pg (26-34); Mean Corpuscular Volume 90.3 fl (80-100); Mean Platelet Volume 10.5 fl (7.4-10.4); Monocytes Absolute Auto 0.6 K/mm3 (0.1-0.6); Monocytes Percent Auto 5.7 % (2.6-8.5); Neutrophils Absolute Auto 8.4 K/mm3 (1.3-6.7); Neutrophils Percent Auto 81.8 % (45.5-73.1); Platelet Count Result 212 k/mm3 (150-375); Red Blood Count 4.93 M/mm3 (4.2-5.4); Red Cell Distribution Width 14.4 % (11.5-14.5); White Blood Count 10.2 K/mm3 (4.5-10.0)
[2022-07-16 20:40] LABS: Lactic Acid Reflex 0.9 mmol/L (0.7-2.0)
[2022-07-16 21:17] LABS: Alanine Aminotransferase 28 U/L (6-35); Albumin Level 4.4 g/dL (3.5-5.1); Alkaline Phosphatase 98 U/L (38-126); Anion Gap 8 mmol/L (8-16); Aspartate Amino Transferase 31 U/L (14-36); Bilirubin,Total 0.8 mg/dL (0.2-1.3); Blood Urea Nitrogen 9 mg/dL (7-17); Calcium 9.8 mg/dL (8.4-10.2); Carbon Dioxide 30 mmol/L (22-30); Chloride 99 mmol/L (98-107); Estimated CRCL calculation 174 ml/min; Estimated Glomerular Filt Rate > 60; Glucose 112 mg/dL (65-110); Lipase 172 U/L (23-300); Potassium 3.8 mmol/L (3.4-5.0); Sodium 137 mmol/L (137-145)
[2022-07-16] MEDS: KETOROLAC (*BKC) 60 MG/2 ML VIAL IM (22:42)
== END 2022-07-16 22:48 | disposition home or self-care (01) ==
LOC: ANHED 20:16
PROVIDERS: Emergency Provider Nurse Practitioner Family; PCP Physician Assistant
DX: M94.0 Chondrocostal junction syndrome [Tietze] (principal); R09.1 Pleurisy; I10 Essential (primary) hypertension; J45.909 Unspecified asthma, uncomplicated; K21.9 Gastro-esophageal reflux disease without esophagitis; M19.90 Unspecified osteoarthritis, unspecified site; Z90.710 Acquired absence of both cervix and uterus; Z87.01 Personal history of pneumonia (recurrent)
CPT/HCPCS: 36415; 71046; 80053; 83605; 83690; 85025; 96372; 99283; J1885

== ENCOUNTER 2023-02-21 03:39 | Inpatient (IN) | payer OTHER, SELFPAY ==
--- NOTE | ~2023-02-21 | XR_ITS ---
Portable chest x-ray Comparison: 07/16/2022 Clinical History: Fatigue Findings: Lungs are clear, without focal consolidation or pleural effusion. Stable metallic density projecting over the left heart. Cardiomediastinal silhouette is stable. Bones and soft tissues are o therwise unremarkable. Impression: Clear lungs. Reviewed, dictated and finalized at location M. Impression: Clear lungs.
--- NOTE | ~2023-02-21 | CT_ITS ---
Non-contrast CT scan of the Abdomen and Pelvis Clinical indication: Left upper quadrant pain, pancreatitis Technique: 2.5 mm axial scans were obtained through the abdomen and pelvis without intravenous or or al contrast. Dose reduction technique was used on this scan by utilizing automated exposure control a nd iterative reconstruction technique. The dose-length product (DLP) was 1667.98 mGy-cm. COMPARISON: 05/19/2022 Findings: Images through the lung bases reveal no abnormalities. The liver, spleen, kidneys, gallbladder, and adrenals appear normal. There is extensive peripancreati c inflammatory change, especially about the pancreatic tail, consistent with acute pancreatitis. No f ocal fluid collection evident. There is no aortic aneurysm. There is no evidence of bowel obstruction. Images through the pelvis were performed. There is no evidence of ascites or lymphadenopathy. Urinary bladder unremarkable. No pelvic mass seen. Impression: Acute pancreatitis. Reviewed, dictated and finalized at [facility]. Impression: Acute pancreatitis.
[2023-02-21 03:45] VITALS: BP 133/82; PULSE 112; RESP 18; TEMP 36.8; O2SAT 98
[2023-02-21 04:06] VITALS: BP 94/62; PULSE 114; RESP 18; O2SAT 96
--- NOTE | 2023-02-21 04:08 | ECG_ITS ---
Measurements Intervals [place] Rate: 106 P: 53 UT: 145 QRS: -27 QRSD: 96 T: 36 QT: 337 QTc: 448 Interpretive Statements SINUS TACHYCARDIA LOW QRS VOLTAGE IN PRECORDIAL LEADS [QRS DEFLECTION < 1.0 mV IN CHEST LEADS] POOR R-WAVE PROGRESSION COMPARED TO ECG 08/06/2021 15:37:53 SINUS TACHYCARDIA NOW PRESENT Electronically Signed On 02-21-2023 13:29:12 CDT by Adin Zepeda M.D.
--- NOTE | 2023-02-21 04:11 | ED.GENADULT ---
HPI - General Adult General Chief complaint: Abdominal Pain Stated complaint: fatigue, LUQ abd pain Time Seen by Provider: 02/21/23 03:57 History of Present Illness HPI narrative: This is a 52-year-old morbidly obese female presenting ED with chief complaint of fatigue. Patient states she has been spending most of the time since Monday in bed and just getting up to eat and use the restroom. Patient is describing left upper quadrant abdominal pain that she describes as sharp, nonradiating, 8/10 intensity and constant. She has never experienced this before there are no exacerbating or alleviating factors. Associated with cough, nausea and burping. No fevers chills chest pain difficulty breathing vomiting diarrhea or urinary symptoms. She says that orange juice tastes different. Related Data Home Medications Medication Instructions Recorded Confirmed albuterol sulfate 2.5 mg/3 mL 2.5 mg inhalation Q4H PRN SOB 05/20/22 05/20/22 (0.083 %) solution for nebulization celecoxib 100 mg capsule 100 mg PO BID 05/20/22 05/20/22 hydrochlorothiazide 25 mg tablet 25 mg PO DAILY 05/20/22 05/20/22 hydrocodone 5 mg-acetaminophen 325 1 tablet PO Q6H PRN Pain (Scale 05/20/22 05/20/22 mg tablet Score 4-6) pregabalin 200 mg capsule 200 mg PO BID 05/20/22 05/20/22 Allergies Allergy/AdvReac Type Severity Reaction Status Date / Time iodine Allergy Unknown Rash Verified 02/21/23 04:06 latex Allergy Unknown Unknown Verified 02/21/23 04:06 Penicillins Allergy Unknown Unknown Verified 02/21/23 04:06 Bumble Bee Allergy Unknown UNKNOWN Uncoded 11/06/18 00:03 [facility] Past Medical History Medical History Asthma Back pain Bronchitis Depression She stated that she was depressed after she got . GERD (gastroesophageal reflux disease) HTN (hypertension) No longer taking medication Osteoarthritis Pneumonia Surgical History Surgical History History of hysterectomy History of placement of ear tubes bilateral ears Hx of cervical discectomy Hx of section x4 Hx of cholecystectomy Hx of right knee surgery Hx of tonsillectomy Hx of tubal ligation Family History Family History Mother Hypertension Social History Social History Social History: The patient is and has 4 children. She lives home alone. She is disabled. She denies ever smoking. She rarely drinks. She denies any marijuana or other illicit drugs. She does not have a durable power workers compensation attorney for healthcare. Code status full code Smoking status: Never smoker Alcohol intake: never Substance use: never Gender identity (if verbalized by the patient): Female Spiritual care concerns: No Exam Narrative: APPEARANCE: appears uncomfortable, Obese Head: atraumatic. EYES: EOMI, NOSE: Atraumatic NECK: Trachea midline RESPIRATORY: No increased rate of breathing Clear to auscultation CARDIOVASCULAR: RRR, ABDOMINAL: abdominal exam is limited due to body habitus, tenderness to palpation in the left upper quadrant, no tenderness in the epigastric area the rest the abdomen. No guarding or rebound. No CVA tenderness. MUSCULOSKELETAl: No obvious deformities NEURO: Alert. Moving 4/4 extremities SKIN:: Warm, dry. Normal color PSYCHIATRIC: Normal affect Course Vital Signs Vital signs: Vital Signs Temperature 98.2 F 02/21/23 03:45 Pulse Rate 112 H 02/21/23 03:45 Respiratory Rate 18 02/21/23 03:45 Blood Pressure 133/82 02/21/23 03:45 Pulse Oximetry 98 02/21/23 03:45 Temperature 98.2 F 02/21/23 03:45 Pulse Rate 114 H 02/21/23 04:06 Respiratory Rate 18 02/21/23 04:06 Blood Pressure 94/62 L 02/21/23 04:06 Pulse Oximetry 96 02/21/23 04:06 Medical Decision Making MDM Narrative Medic
[2023-02-21] MEDS: ONDANSETRON INJ 4 MG/2 ML VIAL IV PUSH (04:53)
[2023-02-21] MEDS: SODIUM CHLORIDE 0.9% IV 3,000 ML 999 ML IV CONT (04:54)
[2023-02-21] MEDS: FAMOTIDINE 20 MG/2 ML VIAL IV PUSH ×2 (04:54→21:31)
[2023-02-21] MEDS: ACETAMINOPHEN 500 MG TABLET 1000 MG PO (04:54)
[2023-02-21 04:57] LABS: Basophils Percent Auto 0.4 % (0.2-1.2); Eosinophils Absolute Auto 0.2 K/mm3 (0-0.3); Eosinophils Percent Auto 1.5 % (0-4.4); Hematocrit 47.7 % (37.0-47.0); Hemoglobin 15.8 g/dL (12.0-15.0); Immature Granulocyte Absolute 0.04 K/mm3 (0.00-0.031); Immature Granulocyte Percent A 0.4 % (0-0.5); Lymphocytes Absolute Auto 1.59 K/mm3 (0.9-3.2); Lymphocytes Percent Auto 14.3 % (18.3-44.2); Mean Corpuscular HGB Conc 33.1 g/dl (32-36); Mean Corpuscular Hemoglobin 30.9 pg (26-34); Mean Corpuscular Volume 93.3 fl (80-100); Mean Platelet Volume 11.2 fl (7.4-10.4); Monocytes Absolute Auto 0.6 K/mm3 (0.1-0.6); Monocytes Percent Auto 4.9 % (2.6-8.5); Neutrophils Absolute Auto 8.8 K/mm3 (1.3-6.7); Neutrophils Percent Auto 78.5 % (45.5-73.1); Platelet Count Result 285 k/mm3 (150-375); Red Blood Count 5.11 M/mm3 (4.2-5.4); Red Cell Distribution Width 13.7 % (11.5-14.5); White Blood Count 11.2 K/mm3 (4.5-10.0)
[2023-02-21 05:09] LABS: INR 1.1; Partial Thromboplastin Time 29.8 SECONDS (22.3-36.8); Prothrombin Time 14.4 Seconds (11.1-14.7)
[2023-02-21 05:10] LABS: Appearance Urine Turbid (Clear); Bacteria Urine 4+ /hpf; Bilirubin Urine 2+ (Negative); Color Urine Dark Yellow (Yellow); Glucose Urine UA Negative (Negative); Ketones Urine 2+ mg/dL (Negative); Leukocyte Esterase Ur 1+ LEU/UL (Negative); Need Manual Microscopic Reviewed; Nitrate Urine Positive (Negative); Non Pathogenic Casts >20; Protein Urine 3+ mg/dL (Negative); Specific Grav Ur 1.025 (1.001-1.035); Squamous Epithelial Cell Urine Many /hpf (Few); WBC Urine 51-100 /hpf; pH Urine 6.5 (5.0-9.0)
[2023-02-21 05:11] LABS: Add Urine Microscopic? YES
[2023-02-21] MEDS: KETOROLAC 15 MG/ML VIAL (*BKC) IV PUSH (05:14)
[2023-02-21 05:15] LABS: Lactic Acid Reflex 1.5 mmol/L (0.7-2.0)
[2023-02-21 05:16] LABS: Alanine Aminotransferase 42 U/L (6-35); Albumin Level 4.3 g/dL (3.5-5.1); Alkaline Phosphatase 133 U/L (38-126); Anion Gap 9 mmol/L (8-16); Aspartate Amino Transferase 47 U/L (14-36); Bilirubin,Total 1.3 mg/dL (0.2-1.3); Blood Urea Nitrogen 17 mg/dL (7-17); Calcium 10.3 mg/dL (8.4-10.2); Carbon Dioxide 28 mmol/L (22-30); Chloride 99 mmol/L (98-107); Creatine Kinase 64 U/L (30-135); Estimated CRCL calculation 132 ml/min; Estimated Glomerular Filt Rate > 60; Glucose 126 mg/dL (65-110); Lipase 75 U/L (23-300); Magnesium 2.3 mg/dL (1.6-2.3); Phosphorus 2.6 mg/dL (2.5-4.5); Potassium 3.6 mmol/L (3.4-5.0); Sodium 136 mmol/L (137-145)
[2023-02-21 05:18] LABS: Barbiturate Screen Urine Negative (Negative); Benzodiazepines Screen Urine Negative (Negative)
[2023-02-21 05:19] LABS: Amphetamine Screen Urine Negative (Negative); Opiate Screen Urine Negative (Negative); Phencyclidine Screen Urine Negative (Negative)
[2023-02-21 05:26] LABS: Troponin I < 0.012 ng/mL (0.000-0.034)
[2023-02-21 05:43] LABS: Influenza A QL RT-PCR Negative (Negative); Influenza B QL RT-PCR Negative (Negative); RSV RNA, RT-PCR Negative (Negative); SARS-CoV-2 RNA PCR Negative (Negative)
[2023-02-21 06:12] LABS: Cannabinoid Screen Urine Negative (Negative); Methadone Screen Urine Negative (Negative)
[2023-02-21 06:38] LABS: Cocaine Screen Urine Negative (Negative)
[2023-02-21 07:15] VITALS: BP 117/64; PULSE 87; RESP 18; O2SAT 97
--- NOTE | 2023-02-21 08:03 | ADMGEN ---
This patient, Erica Lozano, was admitted to Medical Room 340-01. Patient/family oriented to hospital policies and general routines including ID bracelet, bed and alarms, visiting hours, pain management, procedures, bathroom and other care routines, personal items, smoking policy, room service/diet, and visiting hours. Information on how to activate the Rapid Response Team has been discussed. Patient/Family are encouraged to report perceived risks to care and to ask questions if they do not understand what they are told or what they should do.
[2023-02-21 08:15] VITALS: BP 135/80; PULSE 92; RESP 18; TEMP 36.3; O2SAT 99
[2023-02-21] MEDS: LACTATED RINGERS 1,000 ML 125 ML IV CONT ×2 (08:36→16:14)
[2023-02-21] MEDS: SERTRALINE HCL 50 MG TABLET PO (12:42)
[2023-02-21] MEDS: amLODIPine BESYLATE 5 MG TABLET PO (12:42)
[2023-02-21] MEDS: PREGABALIN (*CRX) 50 MG CAPSULE 200 MG PO ×2 (12:43→19:58)
[2023-02-21] MEDS: HYDROcodone/acetaminophen (*CRX) 5-325 MG TABLET 1 TAB PO (12:45)
[2023-02-21 14:00] VITALS: BP 104/52; PULSE 95; RESP 20; TEMP 36.6; O2SAT 95
[2023-02-21] MEDS: HYDROmorphone HCL INJ (*CRX) 1 MG/ML SYR 0.5 MG IV PUSH (19:57)
[2023-02-21 20:22] VITALS: BP 106/66; PULSE 83; RESP 18; TEMP 36.5; O2SAT 92
--- NOTE | 2023-02-21 21:13 | PM.IMHP ---
H&P: HPI History of Present Illness Date/Time: 02/21/23 13:00 Chief Complaint: Abdominal pain. Narrative: This is a pleasant 52-year-old female with history of pancreatitis, asthma, hypertension, borderline diabetes, GERD, and morbid obese who presented to the emergency department from home for evaluation of abdominal pain. The patient provides the following history. She took her grand children to eat at [employer] on Monday and later on that afternoon she began feeling unwell with generalized malaise and abdominal discomfort. As time progressed it settled in the left upper quadrant and she describes a constant, nonradiating pain which is sharp and shooting in nature. At its height, she rates the pain a 8/10. She has not noticed any significant aggravating or alleviating factors though she has not really had much to eat or drink since Monday. Associated symptoms include nausea, bloating, and belching. Symptoms are similar to when she had pancreatitis last April. At that time it was felt that perhaps her pancreatitis was due to alcohol use however she was never a heavy drinker but will occasionally have four alcoholic beverages on the weekends. CT of the abdomen and pelvis today showed findings of acute pancreatitis though her lipase is normal. She is being admitted in this setting for further treatment. To her knowledge she does not have high triglycerides. She denies recent change in medications. She has a history of gallbladder disease and had a cholecystectomy many years ago. No fever, chills, sweats, chest pain, or shortness of breath. No dysuria, urinary frequency, hesitancy, or any other urinary symptoms. Review of Systems Review of Systems: Twelve systems were reviewed and are negative except for as per HPI. [facility] Past Medical History Medical History (Updated 02/21/23 @ 21:20 by Lesley Gordon PA-C) Asthma Bronchitis Chronic back pain Depression Gastroesophageal reflux disease Hypertension Morbid obesity Osteoarthritis Pneumonia Surgical History Surgical History (Updated 02/21/23 @ 21:18 by Lesley Gordon PA-C) History of arthroscopy of right knee History of cervical discectomy History of cholecystectomy History of fusion of cervical spine History of hysterectomy History of placement of ear tubes History of tonsillectomy History of tubal ligation Family History Family History Mother Hypertension Social History Social History (Updated 02/22/23 @ 00:09 by DG Avalos Social History: Surrogate medical decision maker: Ale Hinojosa, daughter. Code status: Full code. Smoking status: Never smoker Alcohol intake: former Substance use: never Substance use type: does not use Lack of Transportation: No Lack of Food: Never True Current Housing: I Have Housing Concerned About Future Housing: No Difficulty Paying Gas/Electric Bills: No Difficulty Paying for Meds: No Currently Unemployed: No Education: High School Diploma/GED Difficulty w/ Childcare or Family Care: No Additional living arrangements comments: . Four children. Additional occupation/education comments: Disabled. Spiritual care concerns: No Meds Home Medications and Allergies Home Medications Medication Instructions Recorded Confirmed Type albuterol sulfate 2.5 mg/3 mL 2.5 mg inhalation Q4H PRN SOB 05/20/22 02/21/23 History (0.083 %) solution for nebulization celecoxib 100 mg capsule 100 mg PO BID 05/20/22 02/21/23 History hydrochlorothiazide 25 mg tablet 25 mg PO DAILY 05/20/22 02/21/23 History pregabalin 200 mg capsule 200 mg PO BID 05/20/22 02/21/23 History amlodipine 5 mg tablet 5 mg PO DAILY 02/21/23 02/21/23 History losartan 100 mg tablet 100 mg PO DAILY 02/21/23 02/21/23 History sertraline 50 mg tablet 50 mg PO DAILY 02/21/23 02/21/23 History zafirlukast 10 mg tablet 20 mg PO BID 02/21/23 02/21/23 History Darryl
[2023-02-21 22:32] LABS: Hepatitis B Surface Antigen Negative (Negative)
[2023-02-21 23:51] LABS: HAV RESULT Negative (Negative); Hepatitis B Core IgM Result Negative (Negative); Hepatitis C Virus Antibody Negative (Negative)
[2023-02-22 04:51] VITALS: BP 133/71; PULSE 82; RESP 20; TEMP 36.5; O2SAT 97
[2023-02-22 05:57] LABS: Hematocrit 39.2 % (37.0-47.0); Hemoglobin 12.5 g/dL (12.0-15.0); Mean Corpuscular HGB Conc 31.9 g/dl (32-36); Mean Corpuscular Hemoglobin 30.6 pg (26-34); Mean Corpuscular Volume 96.1 fl (80-100); Mean Platelet Volume 10.5 fl (7.4-10.4); Platelet Count Result 220 k/mm3 (150-375); Red Blood Count 4.08 M/mm3 (4.2-5.4); Red Cell Distribution Width 13.9 % (11.5-14.5); White Blood Count 5.2 K/mm3 (4.5-10.0)
[2023-02-22 06:13] LABS: Alanine Aminotransferase 38 U/L (6-35); Albumin Level 3.3 g/dL (3.5-5.1); Alkaline Phosphatase 108 U/L (38-126); Anion Gap 2 mmol/L (8-16); Aspartate Amino Transferase 38 U/L (14-36); Bilirubin,Total 0.6 mg/dL (0.2-1.3); Blood Urea Nitrogen 12 mg/dL (7-17); Calcium 8.9 mg/dL (8.4-10.2); Carbon Dioxide 31 mmol/L (22-30); Chloride 104 mmol/L (98-107); Estimated CRCL calculation 175 ml/min; Estimated Glomerular Filt Rate > 60; Glucose 89 mg/dL (65-110); Lipase 56 U/L (23-300); Potassium 3.1 mmol/L (3.4-5.0); Sodium 137 mmol/L (137-145); Triglycerides 88 mg/dL (<150)
[2023-02-22] MEDS: ENOXAPARIN 40 MG/0.4 ML SYRINGE SUB-Q (07:37)
[2023-02-22] MEDS: SERTRALINE HCL 50 MG TABLET PO (07:37)
[2023-02-22] MEDS: FAMOTIDINE 20 MG/2 ML VIAL IV PUSH ×2 (07:37→21:18)
[2023-02-22] MEDS: PREGABALIN (*CRX) 50 MG CAPSULE 200 MG PO ×2 (07:37→17:25)
[2023-02-22] MEDS: HYDROcodone/acetaminophen (*CRX) 5-325 MG TABLET 1 TAB PO (07:43)
[2023-02-22 08:00] VITALS: O2SAT 97
[2023-02-22] MEDS: POTASSIUM CHLORIDE INJ 40 MEQ in SODIUM CHLORIDE 0.9% IV 500 ML 130 MEQ IVPB (09:08)
[2023-02-22 14:00] VITALS: BP 130/76; PULSE 85; RESP 18; TEMP 36.8; O2SAT 93
--- NOTE | 2023-02-22 15:20 | PM.IMPN ---
Progress Note: A&P Assessment and Plan (1) Acute pancreatitis: Code(s): K85.90 - Acute pancreatitis without necrosis or infection, unspecified Status: Acute Assessment and Plan: Significant inflammatory findings on CT of the pancreas. There is not an elevation of lipase which is certainly uncommon. She is a nondrinker. Her lipid panel isn't acutely concerning. There is interval improvement with bowel rest and fluids. (2) Transaminitis: Code(s): R74.01 - Elevation of levels of liver transaminase levels Status: Acute Assessment and Plan: Improvement in liver enzymes. (3) Dehydration: Code(s): E86.0 - Dehydration Status: Acute Assessment and Plan: Resolved. Normal BUN/Cr. (4) Abnormal urinalysis: Code(s): R82.90 - Unspecified abnormal findings in urine Status: Acute Assessment and Plan: No dysuria. Will await culture results. Likely more ASB. (5) Hypertension: Code(s): I10 - Essential (primary) hypertension Status: Acute Assessment and Plan: Stable. Time Spent With Patient Time: >30 minutes. Subjective Date/time seen: 02/22/23 15:20 Interval history: This 52 year old female presented on 02/21 with acute abdominal pain and dry heaves ongoing for a few days. Labwork was notable for elevated liver enzymes. Imaging notable for acute pancreatitis. This morning, Erica states her pain is still present but somewhat improved. She has some appetite and would like to trial some jello. She has not been vomiting. There aren't fevers reported. Review of Systems Review of Systems: Review of symptoms negative across 12 systems other than as noted in history. Exam Narrative: GENERAL APPEARANCE: Appears to be in no acute distress. HEAD: normocephalic atraumatic EYES: PERRL, EOMI. Vision grossly intact. ENT: Hearing grossly intact, no nasal discharge NECK: Neck supple, trachea midline. CARDIAC: Normal S1/S2. Rhythm is regular. No murmurs, rubs, or gallops. No cyanosis or pallor. Extremities are warm and well perfused. LUNGS: Clear to auscultation without rales, rhonchi, wheezing or diminished breath sounds. Respirations even and unlabored. ABDOMEN: BS positive x 4 quadrants. Obese, mild tender LUQ. MSK: No joint tenderness/swelling, fair strength in all extremities. PERIPHERAL VASCULAR: Peripheral pulses palpable. Normal perfusion, cap refill <2 seconds. No edema. NEURO: Follows commands. No focal deficits. SKIN: [place] without lesions or eruptions. PSYCH: Stable, no paranoia or delusional thinking. Objective Data Vital Signs Vital Signs: Vital Signs - 24 hr 02/21/23 20:22 02/22/23 04:51 02/22/23 08:00 Temperature 97.7 F 97.7 F Pulse Rate 83 82 Respiratory Rate 18 20 Blood Pressure 106/66 133/71 Pulse Oximetry 92 97 97 Oxygen Delivery Room Air 02/22/23 14:00 Temperature 98.3 F Pulse Rate 85 Respiratory Rate 18 Blood Pressure 130/76 Pulse Oximetry 93 Oxygen Delivery Intake/Output Intake/Output: Intake & Output 02/19/23 02/20/23 02/21/23 02/22/23 23:59 23:59 23:59 23:59 Intake Total 4050 520 Output Total 1 1 Balance 4049 519 Meds/Results Medications: Active Medications Generic Name Dose Route Start Last Admin Trade Name Freq PRN Reason Stop Dose Admin Acetaminophen 650 mg 02/21/23 07:09 Acetaminophen 325 Mg Tablet PO Q4H PRN Mild Pain (1-3) or Fever Hydrocodone Bitart/Acetaminophen 1 tab 02/21/23 07:09 02/22/23 07:43 Hydrocodone/Acetaminophen (*Crx) 5-325 Mg Tablet PO 1 tab Q4H PRN Administration Pain Rated 4-6 Albuterol 2.5 mg 02/21/23 11:18 Albuterol Sulfate Neb 2.5 Mg/3 Ml Inh INHALATION Q4HRT PRN Shortness Of Breath Amlodipine Besylate 5 mg 02/21/23 11:20 02/21/23 12:42 Amlodipine Besylate 5 Mg Tablet PO 5 mg DAILY NAE Administration Dicyclomine HCl 20 mg 02/21/23 07:09 Dicyclomine Hcl Inj 20 Mg/2
[2023-02-22] MEDS: LACTATED RINGERS 1,000 ML 125 ML IV CONT (17:24)
[2023-02-22 20:00] VITALS: PULSE 86; RESP 16; O2SAT 98
[2023-02-22 20:05] VITALS: BP 106/64; PULSE 86; RESP 16; TEMP 36.7; O2SAT 98
[2023-02-23] MEDS: LACTATED RINGERS 1,000 ML 125 ML IV CONT (01:46)
[2023-02-23 05:08] VITALS: BP 133/79; PULSE 85; RESP 16; TEMP 37.2; O2SAT 95
[2023-02-23 06:14] LABS: Hematocrit 37.3 % (37.0-47.0); Mean Corpuscular HGB Conc 32.2 g/dl (32-36); Mean Corpuscular Hemoglobin 30.2 pg (26-34); Mean Platelet Volume 10.4 fl (7.4-10.4); Platelet Count Result 226 k/mm3 (150-375); Red Blood Count 3.97 M/mm3 (4.2-5.4); Red Cell Distribution Width 13.2 % (11.5-14.5); White Blood Count 4.2 K/mm3 (4.5-10.0)
[2023-02-23 06:28] LABS: Alanine Aminotransferase 38 U/L (6-35); Albumin Level 3.1 g/dL (3.5-5.1); Alkaline Phosphatase 95 U/L (38-126); Amylase 37 U/L (30-110); Anion Gap 5 mmol/L (8-16); Aspartate Amino Transferase 32 U/L (14-36); Bilirubin,Total 0.5 mg/dL (0.2-1.3); Blood Urea Nitrogen 8 mg/dL (7-17); Calcium 8.7 mg/dL (8.4-10.2); Carbon Dioxide 33 mmol/L (22-30); Chloride 101 mmol/L (98-107); Estimated CRCL calculation 177 ml/min; Estimated Glomerular Filt Rate > 60; Glucose 83 mg/dL (65-110); Lipase 61 U/L (23-300); Sodium 139 mmol/L (137-145)
[2023-02-23] MEDS: SERTRALINE HCL 50 MG TABLET PO (08:53)
[2023-02-23] MEDS: PREGABALIN (*CRX) 50 MG CAPSULE 200 MG PO (08:54)
[2023-02-23] MEDS: POTASSIUM CHLORIDE 20 MEQ ER TABLET 40 MEQ PO (08:54)
[2023-02-23] MEDS: FAMOTIDINE 20 MG/2 ML VIAL IV PUSH (08:54)
[2023-02-23] MEDS: ENOXAPARIN 40 MG/0.4 ML SYRINGE SUB-Q (08:54)
[2023-02-23] MEDS: LACTATED RINGERS 1,000 ML 100 ML IV CONT (08:57)
[2023-02-23 09:16] VITALS: PULSE 82; O2SAT 94
--- NOTE | 2023-02-23 11:57 | PM.DS ---
DS: Admitting Diagnosis Discharge Date 02/23/23 Admitting Diagnosis Pancreatitis without lipase elevation, elevated liver enzymes, dehydration, abnormal UA, HTN DS: Discharge Diagnosis Discharge Diagnosis (1) Acute pancreatitis: Code(s): K85.90 - Acute pancreatitis without necrosis or infection, unspecified Status: Acute Assessment and Plan: Patient had similar presentation 05/19 without acute etiology noted at that time, felt to be related to etoh at that time but stopped drinking since then. No acute etiology noted at this time with normal lipase/amylase. An IgG4 has been sent off for consideration of autoimmune pancreatitis and this is pending. She was managed with fluids and bowel rest and has had resolution of symptoms. Recommend further outpatient f/u. (2) Abnormal urinalysis: Code(s): R82.90 - Unspecified abnormal findings in urine Status: Acute Assessment and Plan: Mixed fritz on cx, no dysuria. Not likely UTI. (3) Dehydration: Code(s): E86.0 - Dehydration Status: Acute Assessment and Plan: Poor intake a few days prior to admission without acute lab abnormalities and now taking oral intake well. (4) Transaminitis: Code(s): R74.01 - Elevation of levels of liver transaminase levels Status: Acute Assessment and Plan: Improving. (5) Morbid obesity: Code(s): E66.01 - Morbid (severe) obesity due to excess calories Status: Acute (6) Chronic back pain: Code(s): M54.9 - Dorsalgia, unspecified; G89.29 - Other chronic pain Status: Acute (7) Hypertension: Code(s): I10 - Essential (primary) hypertension Status: Acute Assessment and Plan: Stable. DS: Summary Hospital Course Reason for hospitalization: Abd. pain, n/v Hospital Course: This 52 year old female presented on 02/21 with acute abdominal pain and dry heaves ongoing for a few days.? Labwork was notable for elevated liver enzymes.? Imaging notable for acute pancreatitis. Triglycerides were normal, lipase was normal. There is no acute etiology noted for the pancreatitis; this is her second admission of this nature. Symptoms resolved with bowel rest and IVF. There were no additional hospital complaints. On day of discharge Erica is doing well without new concerns. She is tolerating diet well. She will have f/u with her pcp in the near future to recheck on symptoms and further investigation to etiology. As noted above, there is an IgG4 level pending. Status at Discharge Cognitive/behavioral status at discharge: Baseline Time Spent with Patient Time attestation: Total time spent providing and/or coordinating discharge services: Time spent: Greater than 30 minutes Exam Narrative: GENERAL APPEARANCE: Appears to be in no acute distress. HEAD: normocephalic atraumatic EYES: PERRL, EOMI. Vision grossly intact. ENT: Hearing grossly intact, no nasal discharge NECK: Neck supple, trachea midline. CARDIAC: Normal S1/S2. Rhythm is regular. No murmurs, rubs, or gallops. No cyanosis or pallor. Extremities are warm and well perfused. LUNGS: Clear to auscultation without rales, rhonchi, wheezing or diminished breath sounds. Respirations even and unlabored. ABDOMEN: BS positive x 4 quadrants. Obese. Soft, nondistended, nontender. No guarding or rebound. MSK: No joint tenderness/swelling, fair strength in all extremities. PERIPHERAL VASCULAR: Peripheral pulses palpable. Normal perfusion, cap refill <2 seconds. No edema. NEURO: Follows commands. No focal deficits. SKIN: [place] without lesions or eruptions. PSYCH: Stable, no paranoia or delusional thinking. DS: Data Data Completed and Pending Pending studies at discharge: IgG4 lab. Labs on day of discharge: Labs from last 24 hours 02/23/23 05:37 WBC 4.2 L RBC 3.97 L Hgb 12.0 Hct 37.3 MCV 94.0 MCH 30.2 MCHC 32.2 RDW 13.2 Plt Count 226 MPV 10.4 Sodium 139 Potassium 3.0 L Chl
[2023-02-27 12:07] LABS: Reference Lab Test Result 13.7
== END 2023-02-23 14:38 | disposition home or self-care (01) | DRG 282 ==
LOC: ANHED 06:25 → ANH3MED 07:54
PROVIDERS: Physician Assistant; Admitting Provider Hospitalist; Emergency Provider Emergency Medicine; PCP Physician Assistant; Visit Provider Nurse Practitioner Family
DX: K85.90 Acute pancreatitis without necrosis or infection, unspecified (principal); E66.01 Morbid (severe) obesity due to excess calories; E86.0 Dehydration; J45.909 Unspecified asthma, uncomplicated; I10 Essential (primary) hypertension; K21.9 Gastro-esophageal reflux disease without esophagitis; M19.90 Unspecified osteoarthritis, unspecified site; M54.9 Dorsalgia, unspecified; G89.29 Other chronic pain; F32.A Depression, unspecified; Z20.822 Contact with and (suspected) exposure to COVID-19; Z90.49 Acquired absence of other specified parts of digestive tract
CPT/HCPCS: 36415; 71045; 74176; 80048; 80053; 80074; 80076; 80307; 81001; 82150; 82550; 83605; 83690; 83735; 84100; 84478; 84484; 85025; 85027; 85610; 85730; 87040; 87086; 87088; 87637; 93005; 96361; 96365; 96375; 99285; A9270; J0696; J1170; J1650; J1885; J2405; J3480; J7030; J7040; J7120

== ENCOUNTER 2023-11-27 13:30 | Emergency (ER) | payer OTHER, SELFPAY ==
--- NOTE | 2023-11-27 13:32 | ED.URI ---
HPI - URI/Sore Throat General Chief Complaint: Dizziness Stated Complaint: neck, under chin hurts,swollen,dizzy Time Seen by Provider: 11/27/23 13:31 Source: patient Mode of arrival: ambulatory Limitations: no limitations History of Present Illness HPI Narrative: Kathia is a 53-year-old female patient presenting to the clinic today with complaint of swollen/tender lymph nodes, headache, and dizziness. She reports she has had a headache for a week and half. Dizziness and swollen tender area under the chin developed yesterday. Denies any sore throat, runny nose, nasal congestion, fever, chills, body aches, or dental pain.. Only recent change in her medication as her diabetes medication-Jardiance that she just started about 3 weeks ago. Reports having visual changes but this has been going on for awhile. Related Data Home Medications Medication Instructions Recorded Confirmed albuterol sulfate 2.5 mg/3 mL 2.5 mg inhalation Q4H PRN SOB 05/20/22 11/27/23 (0.083 %) solution for nebulization celecoxib 100 mg capsule 100 mg PO BID 05/20/22 11/27/23 amlodipine 5 mg tablet 5 mg PO DAILY 02/21/23 11/27/23 losartan 100 mg tablet 100 mg PO DAILY 02/21/23 11/27/23 sertraline 50 mg tablet 50 mg PO DAILY 02/21/23 11/27/23 zafirlukast 10 mg tablet 20 mg PO BID 02/21/23 11/27/23 atorvastatin 20 mg tablet 20 mg DIRECTED 11/27/23 11/27/23 empagliflozin 25 mg tablet 25 mg DIRECTED 11/27/23 11/27/23 (Jardiance) pantoprazole 40 mg tablet,delayed 40 mg PO DIRECTED 11/27/23 11/27/23 release Allergies Allergy/AdvReac Type Severity Reaction Status Date / Time iodine Allergy Unknown Rash Verified 08/08/23 16:13 latex Allergy Unknown Unknown Verified 08/08/23 16:13 Penicillins Allergy Unknown Unknown Verified 08/08/23 16:13 Bumble Bee Allergy Unknown UNKNOWN Uncoded 08/08/23 16:13 Review of Systems Review of Systems: Pertinent positives per HPI. Patient denies any fever, chills, rash, cough, shortness of breath, chest pain, palpitations, nausea, vomiting, diarrhea, constipation, abdominal pain, or any urinary issues. [facility] Past Medical History Medical History Abnormality of pancreatic duct Asthma Bronchitis Chronic back pain Depression Gastroesophageal reflux disease Hypertension Morbid obesity Osteoarthritis Pneumonia Surgical History Surgical History History of arthroscopy of right knee History of cervical discectomy History of cholecystectomy History of fusion of cervical spine History of hysterectomy History of placement of ear tubes History of tonsillectomy History of tubal ligation Family History Family History Mother Hypertension Social History Social History Social History: Surrogate medical decision maker: Ale Hinojosa, daughter. Code status: Full code. Smoking status: Never smoker Alcohol intake: former Substance use: never Substance use type: does not use Lack of Transportation: No Lack of Food: Never True Current Housing: I Have Housing Concerned About Future Housing: No Difficulty Paying Gas/Electric Bills: No Difficulty Paying for Meds: No Currently Unemployed: No Education: High School Diploma/GED Difficulty w/ Childcare or Family Care: No Additional living arrangements comments: . Four children. Additional occupation/education comments: Disabled. Spiritual care concerns: No Comments At the time of my signature, I reviewed and agree with the nursing past medical, surgical, social, and family history. There is no relevant family history pertinent to the patient complaint. Exam Narrative: General: Well-developed, morbidly obese, in no apparent distress Head: Normocephalic, atraumatic Eyes: Pupils equally
[2023-11-27 13:45] VITALS: BP 148/90; PULSE 77; RESP 17; TEMP 36.2; O2SAT 98
[2023-11-27 14:00] LABS: Glucose Point of Care 101 mg/dl (65-105)
== END 2023-11-27 14:02 | disposition short-term general hospital (02) ==
LOC: EXPCOLL 13:36
PROVIDERS: Emergency Provider Nurse Practitioner Family; PCP Physician Assistant
DX: R42 Dizziness and giddiness (principal); R51.9 Headache, unspecified; R59.9 Enlarged lymph nodes, unspecified; J45.909 Unspecified asthma, uncomplicated; K21.9 Gastro-esophageal reflux disease without esophagitis; I10 Essential (primary) hypertension; E66.01 Morbid (severe) obesity due to excess calories; Z68.44 Body mass index [BMI] 60.0-69.9, adult; M19.90 Unspecified osteoarthritis, unspecified site; E11.9 Type 2 diabetes mellitus without complications; Z79.84 Long term (current) use of oral hypoglycemic drugs; F32.A Depression, unspecified
CPT/HCPCS: 82948; 99213; G0463

== ENCOUNTER 2023-11-27 14:18 | Emergency (ER) | payer OTHER, SELFPAY ==
[2023-11-27 14:49] VITALS: BP 144/95; PULSE 70; RESP 20; TEMP 36.6; O2SAT 99
== END 2023-11-27 17:00 | disposition left against medical advice (07) ==
PROVIDERS: PCP Physician Assistant
DX: R42 Dizziness and giddiness (principal)
CPT/HCPCS: 99199

== ENCOUNTER 2023-12-22 13:45 | Emergency (ER) | payer OTHER, SELFPAY ==
[2023-12-22 14:01] VITALS: BP 126/77; PULSE 91; RESP 20; TEMP 36.5; O2SAT 99
--- NOTE | 2023-12-22 14:24 | ED.FEMALEGU ---
HPI - Female Genitourinary General Chief complaint: Urogenital-Female Stated complaint: UTI Time Seen by Provider: 12/22/23 14:25 Source: patient Mode of arrival: ambulatory Limitations: no limitations History of Present Illness HPI Narrative: 53-year-old female presents with complaint of urinary frequency, urgency, dysuria, suprapubic pressure for the past 2 days. Afebrile. Denies nausea vomiting. Patient newly diagnosed with diabetes. Just started metformin. Does not have monitor to check blood sugar. States due to urinary symptoms has been drinking cranberry juice. All systems reviewed and negative except as noted above. Related Data Home Medications Medication Instructions Recorded Confirmed albuterol sulfate 2.5 mg/3 mL 2.5 mg inhalation Q4H PRN SOB 05/20/22 11/27/23 (0.083 %) solution for nebulization celecoxib 100 mg capsule 100 mg PO BID 05/20/22 11/27/23 amlodipine 5 mg tablet 5 mg PO DAILY 02/21/23 11/27/23 losartan 100 mg tablet 100 mg PO DAILY 02/21/23 11/27/23 sertraline 50 mg tablet 50 mg PO DAILY 02/21/23 11/27/23 zafirlukast 10 mg tablet 20 mg PO BID 02/21/23 11/27/23 atorvastatin 20 mg tablet 20 mg DIRECTED 11/27/23 11/27/23 empagliflozin 25 mg tablet 25 mg DIRECTED 11/27/23 11/27/23 (Jardiance) pantoprazole 40 mg tablet,delayed 40 mg PO DIRECTED 11/27/23 11/27/23 release Allergies Allergy/AdvReac Type Severity Reaction Status Date / Time iodine Allergy Unknown Rash Verified 11/27/23 14:51 latex Allergy Unknown Unknown Verified 11/27/23 14:51 Penicillins Allergy Unknown Unknown Verified 11/27/23 14:51 Bumble Bee Allergy Unknown UNKNOWN Uncoded 08/08/23 16:13 Review of Systems Review of Systems: CONSTITUTIONAL: Denies fever, chills, or sweats. EYES: Denies visual changes, redness, or discharge. ENT: Denies rhinorrhea, congestion, sore throat, or otalgia. CARDIOVASCULAR: Denies chest pain, palpitations, or edema. RESPIRATORY: Denies cough or dyspnea. GASTROINTESTINAL: Denies abdominal pain, nausea, vomiting, or diarrhea. GENITOURINARY: Reports dysuria urgency, frequency. Denies hematuria. SKIN: Denies rash or itching. MUSCULOSKELETAL: Denies back pain, joint pain, or myalgia. NEUROLOGIC: Denies headache, numbness, or weakness. PSYCHIATRIC: Denies anxiety or depression. All other systems reviewed are negative, except as documented in HPI. [facility] Past Medical History Medical History Abnormality of pancreatic duct Asthma Bronchitis Chronic back pain Depression Gastroesophageal reflux disease Hypertension Morbid obesity Osteoarthritis Pneumonia Surgical History Surgical History History of arthroscopy of right knee History of cervical discectomy History of cholecystectomy History of fusion of cervical spine History of hysterectomy History of placement of ear tubes History of tonsillectomy History of tubal ligation Family History Family History Mother Hypertension Social History Social History Social History: Surrogate medical decision maker: Ale Hinojosa, daughter. Code status: Full code. Smoking status: Never smoker Alcohol intake: former Substance use: never Substance use type: does not use Lack of Transportation: No Lack of Food: Never True Current Housing: I Have Housing Concerned About Future Housing: No Difficulty Paying Gas/Electric Bills: No Difficulty Paying for Meds: No Currently Unemployed: No Education: High School Diploma/GED Difficulty w/ Childcare or Family Care: No Additional living arrangements comments: . Four children. Additional occupation/education comments: Disabled. Spiritual care concerns: No Comments At time of signature, agree with nursing past medic
== END 2023-12-22 14:40 | disposition home or self-care (01) ==
PROVIDERS: Emergency Provider Nurse Practitioner Family; PCP Physician Assistant
DX: N39.0 Urinary tract infection, site not specified (principal); J45.909 Unspecified asthma, uncomplicated; K21.9 Gastro-esophageal reflux disease without esophagitis; I10 Essential (primary) hypertension; E66.01 Morbid (severe) obesity due to excess calories; Z68.44 Body mass index [BMI] 60.0-69.9, adult; M19.90 Unspecified osteoarthritis, unspecified site; F32.A Depression, unspecified
CPT/HCPCS: 87086; 87088; 99213; G0463

== ENCOUNTER 2023-12-27 21:38 | Emergency (ER) | payer OTHER, SELFPAY ==
[2023-12-27 21:42] VITALS: BP 149/89; PULSE 96; RESP 20; TEMP 36.6; O2SAT 98
[2023-12-27 22:53] LABS: Appearance Urine Turbid (Clear); Bilirubin Urine Negative (Negative); Blood Urine 2+ (Negative); Color Urine Dark Yellow (Yellow); Glucose Urine UA 3+ mg/dL (Negative); Ketones Urine Trace mg/dL (Negative); Leukocyte Esterase Ur 2+ LEU/UL (Negative); Nitrate Urine Negative (Negative); Non Pathogenic Casts 0-2; Protein Urine 2+ mg/dL (Negative); RBC Urine 21-50 /hpf (0-2); Squamous Epithelial Cell Urine None Seen /hpf (Few); Urobilinogen Urine 0.2 mg/dL (<2.0); WBC Urine >100 /hpf (0-3)
--- NOTE | 2023-12-27 22:54 | ED.FEMALEGU ---
HPI - Female Genitourinary General Chief complaint: Urogenital-Female Stated complaint: UTI Time Seen by Provider: 12/27/23 22:26 History of Present Illness HPI Narrative: 53-year-old female history of tubal ligation, partial hysterectomy, GERD and type 2 diabetes presents to the emergency department for dysuria for 1 week. Patient was seen at an urgent care 5 days ago was diagnosed with the UTI surgeon Irvingrim for 5 days and peridium. States she took the antibiotics as prescribed and has not missed any doses, she has not had any improvement in her symptoms which prompted her to come to the ED today. She reports a burning sensation when she urinates. She denies vaginal discharge, vaginal pruritus or concern for yeast infection, abdominal pain, nausea or vomiting, flank pain, history of kidney stones. She is not sexually active denies possibility for STDs. She does state that she had some hematuria about 5 days ago but that has since resolved. Chart review reveals the urine culture from 12/22/2023 showed no growth. Related Data Home Medications Medication Instructions Recorded Confirmed albuterol sulfate 2.5 mg/3 mL 2.5 mg inhalation Q4H PRN SOB 05/20/22 11/27/23 (0.083 %) solution for nebulization celecoxib 100 mg capsule 100 mg PO BID 05/20/22 11/27/23 amlodipine 5 mg tablet 5 mg PO DAILY 02/21/23 11/27/23 losartan 100 mg tablet 100 mg PO DAILY 02/21/23 11/27/23 sertraline 50 mg tablet 50 mg PO DAILY 02/21/23 11/27/23 zafirlukast 10 mg tablet 20 mg PO BID 02/21/23 11/27/23 atorvastatin 20 mg tablet 20 mg DIRECTED 11/27/23 11/27/23 empagliflozin 25 mg tablet 25 mg DIRECTED 11/27/23 11/27/23 (Jardiance) pantoprazole 40 mg tablet,delayed 40 mg PO DIRECTED 11/27/23 11/27/23 release Allergies Allergy/AdvReac Type Severity Reaction Status Date / Time iodine Allergy Unknown Rash Verified 11/27/23 14:51 latex Allergy Unknown Unknown Verified 11/27/23 14:51 Penicillins Allergy Unknown Unknown Verified 11/27/23 14:51 Bumble Bee Allergy Unknown UNKNOWN Uncoded 08/08/23 16:13 Review of Systems Review of Systems: CONSTITUTIONAL: Denies fever, chills, or sweats. EYES: Denies visual changes, redness, or discharge. ENT: Denies rhinorrhea, congestion, sore throat, or otalgia. CARDIOVASCULAR: Denies chest pain, palpitations, or edema. RESPIRATORY: Denies cough or dyspnea. GASTROINTESTINAL: Denies abdominal pain, nausea, vomiting, or diarrhea. GENITOURINARY: See HPI SKIN: Denies rash or itching. MUSCULOSKELETAL: Denies back pain, joint pain, or myalgia. NEUROLOGIC: Denies headache, numbness, or weakness. PSYCHIATRIC: Denies anxiety or depression. COUNT INCLUDES THE [facility] Past Medical History Medical History Abnormality of pancreatic duct Asthma Bronchitis Chronic back pain Depression Gastroesophageal reflux disease Hypertension Morbid obesity Osteoarthritis Pneumonia Surgical History Surgical History History of arthroscopy of right knee History of cervical discectomy History of cholecystectomy History of fusion of cervical spine History of hysterectomy History of placement of ear tubes History of tonsillectomy History of tubal ligation Family History Family History Mother Hypertension Social History Social History Social History: Surrogate medical decision maker: Ale Hinojosa, daughter. Code status: Full code. Smoking status: Never smoker Alcohol intake: former Substance use: never Substance use type: does not use Lack of Transportation: No Lack of Food: Never True Current Housing: I Have Housing Concerned About Future Housing: No Difficulty Paying Gas/Electric Bills: No Difficulty Paying for Meds: No Currently Unemployed: No Education: High School Diploma/GED
[2023-12-27 23:02] LABS: Bacteria Urine 1+ /hpf; Specific Grav Ur 1.038 (1.001-1.035)
[2023-12-27 23:04] LABS: Add Urine Microscopic? YES
[2023-12-27] MEDS: CEPHALEXIN 500 MG CAPSULE PO (23:19)
== END 2023-12-27 23:22 | disposition home or self-care (01) ==
PROVIDERS: Emergency Provider Physician Assistant; PCP Physician Assistant
DX: N30.01 Acute cystitis with hematuria (principal); I10 Essential (primary) hypertension; J45.909 Unspecified asthma, uncomplicated; E11.9 Type 2 diabetes mellitus without complications; E66.01 Morbid (severe) obesity due to excess calories; Z68.44 Body mass index [BMI] 60.0-69.9, adult; K21.9 Gastro-esophageal reflux disease without esophagitis; M19.90 Unspecified osteoarthritis, unspecified site; F32.A Depression, unspecified; Z98.1 Arthrodesis status; Z90.711 Acquired absence of uterus with remaining cervical stump; Z90.49 Acquired absence of other specified parts of digestive tract; Z79.84 Long term (current) use of oral hypoglycemic drugs
CPT/HCPCS: 81001; 87077; 87086; 87088; 87186; 99283; A9270

== ENCOUNTER 2024-02-17 22:24 | Emergency (ER) | payer OTHER, SELFPAY ==
--- NOTE | ~2024-02-17 | XR_ITS ---
EXAMINATION: XR knee LT min 4V DATE: 02/17/2024 22:55 INDICATION: Left knee pain TECHNIQUE: Anteroposterior, 2 oblique and crosstable lateral views of the left knee were obtained COMPARISON: None. FINDINGS: Alignment is normal. No fracture. Tricompartmental osteoarthritis with moderate size marginal osteop hytes in all 3 compartments. There is at least moderate joint space narrowing in the medial compartme nt and at least mild joint space narrowing the patellofemoral compartment. Large loose osteochondral body in the recess posterior to the knee. No joint effusion/layering lipohemarthrosis. Soft tissues a re unremarkable. IMPRESSION: 1. At least moderate medial compartment predominant tricompartmental osteoarthritis at the left knee. Reviewed, dictated and finalized at location A. IMPRESSION: 1. At least moderate medial compartment predominant tricompartmental osteoarthr itis at the left knee.
[2024-02-17 22:26] VITALS: BP 150/62; PULSE 90; RESP 15; TEMP 36.2; O2SAT 99
--- NOTE | 2024-02-17 22:54 | PC.NURSE ---
Pt in xray at this time. xray to take pt to room 4 after imaging complete.
--- NOTE | 2024-02-17 23:14 | ED.GENADULT ---
HPI - General Adult General Chief complaint: Extremity Injury, Lower Stated complaint: L knee pain Time Seen by Provider: 02/17/24 22:59 Source: patient Mode of arrival: ambulatory Limitations: no limitations History of Present Illness HPI narrative: This is a 53-year-old female who presents to the ED for chief complaint of left knee pain for the past week. Reports that she had a fall about a week ago where she fell directly onto the left knee. She has known severe arthritis in this knee and states the pain is worse than normal for her arthritis. denies any further injury. Denies any further sites of pain. Denies numbness, weakness Related Data Home Medications Medication Instructions Recorded Confirmed albuterol sulfate 2.5 mg/3 mL 2.5 mg inhalation Q4H PRN SOB 05/20/22 11/27/23 (0.083 %) solution for nebulization celecoxib 100 mg capsule 100 mg PO BID 05/20/22 11/27/23 amlodipine 5 mg tablet 5 mg PO DAILY 02/21/23 11/27/23 losartan 100 mg tablet 100 mg PO DAILY 02/21/23 11/27/23 sertraline 50 mg tablet 50 mg PO DAILY 02/21/23 11/27/23 zafirlukast 10 mg tablet 20 mg PO BID 02/21/23 11/27/23 atorvastatin 20 mg tablet 20 mg DIRECTED 11/27/23 11/27/23 empagliflozin 25 mg tablet 25 mg DIRECTED 11/27/23 11/27/23 (Jardiance) pantoprazole 40 mg tablet,delayed 40 mg PO DIRECTED 11/27/23 11/27/23 release Allergies Allergy/AdvReac Type Severity Reaction Status Date / Time iodine Allergy Unknown Rash Verified 02/17/24 22:24 latex Allergy Unknown Unknown Verified 02/17/24 22:24 Penicillins Allergy Unknown Unknown Verified 02/17/24 22:24 Bumble Bee Allergy Unknown UNKNOWN Uncoded 08/08/23 16:13 Review of Systems Review of Systems: All systems as dictated in HPI [facility] Past Medical History Medical History Abnormality of pancreatic duct Asthma Bronchitis Chronic back pain Depression Gastroesophageal reflux disease Hypertension Morbid obesity Osteoarthritis Pneumonia Surgical History Surgical History History of arthroscopy of right knee History of cervical discectomy History of cholecystectomy History of fusion of cervical spine History of hysterectomy History of placement of ear tubes History of tonsillectomy History of tubal ligation Family History Family History Mother Hypertension Social History Social History Social History: Surrogate medical decision maker: Ale Hinojosa, daughter. Code status: Full code. Smoking status: Never smoker Alcohol intake: former Substance use: never Substance use type: does not use Lack of Transportation: No Lack of Food: Never True Current Housing: I Have Housing Concerned About Future Housing: No Difficulty Paying Gas/Electric Bills: No Difficulty Paying for Meds: No Currently Unemployed: No Education: High School Diploma/GED Difficulty w/ Childcare or Family Care: No Additional living arrangements comments: . Four children. Additional occupation/education comments: Disabled. Spiritual care concerns: No Exam Narrative: GENERAL: Well-appearing, well-nourished, and in no acute distress. HEAD: Normocephalic, atraumatic. EYES: PERRLA and EOMI. ENT: Nares clear, no rhinorrhea or epistaxis. Mucous membranes moist. Oropharynx without tonsillar hypertrophy exudate or other lesions. NECK: Supple. No adenopathy or masses. CHEST: No respiratory distress. Clear to auscultation. No wheezes rales or rhonchi HEART: Regular rate and rhythm. No murmur heard. Normal peripheral pulses. ABDOMEN: Soft, nontender, nondistended, normal active bowel sounds. MSK: Tenderness to the medial joint line of the left knee. No deformity. No bruising. Neurovascularly intact distal. full passive r
[2024-02-17] MEDS: dexAMETHasone SOD PHOS INJ 10 MG/ML 1 ML VIAL IM (23:33)
== END 2024-02-17 23:36 | disposition home or self-care (01) ==
PROVIDERS: Emergency Provider Physician Assistant; PCP Physician Assistant
DX: M17.12 Unilateral primary osteoarthritis, left knee (principal); J45.909 Unspecified asthma, uncomplicated; I10 Essential (primary) hypertension; K21.9 Gastro-esophageal reflux disease without esophagitis; F32.A Depression, unspecified; Z98.1 Arthrodesis status; Z87.01 Personal history of pneumonia (recurrent); Z90.710 Acquired absence of both cervix and uterus; Z90.49 Acquired absence of other specified parts of digestive tract; Z79.84 Long term (current) use of oral hypoglycemic drugs; Z79.899 Other long term (current) drug therapy; W19.XXXA Unspecified fall, initial encounter
CPT/HCPCS: 73564; 96372; 99283; J1100

== ENCOUNTER 2025-01-09 13:00 | Outpatient (RCR) | payer OTHER, SELFPAY ==
[2024-12-02 10:00] VITALS: BP_SYST 80
--- NOTE | 2024-12-02 11:03 | OPREHPOC ---
Outpatient Therapy Plan of Care This is a Multidisciplinary Plan of Care that may contain components documented by all disciplines (PT, OT, and ST.) PT Problem 1 PT Problem #1 Knowledge Deficit PT Goal 1 Goal / Goal Update *independent with HEP Target Visit 6 PT Problem 2 PT Problem #2 Pain PT Goal 1 Goal / Goal Update * pt report pain at worst rating of 7/10 Target Visit 6 PT Goal 2 Goal / Goal Update *with sleeping, awaken 1x/night due to shoulder pain Target Visit 6 PT Problem 3 PT Problem #3 Impaired Flexibility PT Goal 1 Goal / Goal Update *increase ROM of L shoulder to improve use of L arm in standing: active 1* flexion 90' 2* abduction 80' 3* IR- reach to L SIJ 4* ER- reach to back of head Target Visit 6 PT Problem 4 PT Problem #4 Impaired Strength PT Goal 1 Goal / Goal Update Increase strength of L shoulder, to 3+/5 improve posture and use of L arm for home and self care tasks: Target Visit 6
--- NOTE | 2024-12-02 11:03 | PTOPEVAL1 ---
Assessment and note entered by Octavia Eid, PT Evaluation Information Assessment Status Evaluation ICD-10 Condition Codes (PT) Pain in left shoulder M25.512 Onset June 2024 Subjective Information onset of L shoulder pain [address] [employer]; problems with it since then, started getting worse in June, no fall or recent injury to shoulder R hand dominant x ray of L shoulder: L humeral head osteophyte, narrowing of GH and A-C joint space no previous PT on L shoulder; activity: not working due to disability; watch grand daughter; problems doing hair, wash body Reported Pain Level Pain Score Self Report Additional Pain Score Comments pain range in the past week 4-10/10; top and lateral shoulder, proximal-medial humerus; intermittent to elbow and numbness into L fingers 2,3,4,5 intermittent is R hand dominant increase pain: doing hair, lifting arm up, using arm, lie on L side decrease pain: rest, muscle cream, muscle relaxer, heat/ice, heat helps more than ice reports with sleeping: have to lie on her R side, when move wakes her up, 3-4 x/night ALSO: have chronic pain in her back, both knees- injections; intermittent R shoulder pain; Assessment PT Clinical Summary Erica has the diagnosis of L shoulder pain. She reports chronic issues with shoulder pain, increasing in June. She is R hand dominant and reports issues with doing her hair, home tasks and raising her arm up. DASH self assessment of 61% limitation in activity level. She does not work outside of the home. Xray report states narrowing of GH and A-C joint spaces. L humeral head osteophyte. Medical history includes: chronic back pain, bilateral feet, shoulder and knee pain. And cervical fusion. With the evaluation: poor standing posture of neck trunk and shoulders; decreased ROM & strength of all motions of L shoulder, with abduction and flexion the most pain; radicular pain into L UE fingers, intermittent; Skilled PT services are indicated for modalities to decrease pain; therapeutic exercises to increase L shoulder strength and ROM, with education for posture, HEP. Plan of Care Interventions Electrical Stimulation,Hot Pack/Cold Pack,Manual Therapy,Neuro Re-education,Patient/Caregiver Education,Therapeutic Activities,Therapeutic Exercise,Ultrasound,Other Other Interventions taping PT Services Indicated Yes Treatment Frequency and 1-2x/wk for 6 visits Duration These treatments will address the objective and functional deficits as defined above. The patient will be advanced safely and appropriately in order for the patient to progress towards his/her prior level of function. Additional exercises will be introduced and as well as a comprehensive home exercise program upon discharge, if needed, ?to ensure carryover of functional gains achieved in the clinic. This treatment plan has been reviewed and agreement upon by the patient.
--- NOTE | 2024-12-09 15:31 | PCPTNOTE ---
Pt canceled her appt today due to knee pain, pt being seen for shoulder.
--- NOTE | 2024-12-16 12:29 | PCPTNOTE ---
Pt canceled todays appt due to illness.
[2024-12-20 13:10] VITALS: BP_SYST 80
--- NOTE | 2024-12-20 14:02 | OPREHPOC ---
Outpatient Therapy Plan of Care This is a Multidisciplinary Plan of Care that may contain components documented by all disciplines (PT, OT, and ST.) PT Problem 1 PT Problem #1 Knowledge Deficit PT Goal 1 Goal / Goal Update *independent with HEP 12-20-24 progress goal met continue to progress HEP and education Target Visit 10 PT Problem 2 PT Problem #2 Pain PT Goal 1 Goal / Goal Update * pt report pain at worst rating of 7/10 12-20-24 progress goal met NEW goal: * decrease pain to 5/10 at worst Target Visit 10 PT Goal 2 Goal / Goal Update *with sleeping, awaken 1x/night due to shoulder pain 12-20-24 progress goal not met continue towards Target Visit 10 PT Problem 3 PT Problem #3 Impaired Flexibility PT Goal 1 Goal / Goal Update *increase ROM of L shoulder to improve use of L arm in standing: active 1* flexion 90' 2* abduction 80' 3* IR- reach to L SIJ 4* ER- reach to back of head 12-20-24 progress goal not met Target Visit 10 PT Problem 4 PT Problem #4 Impaired Strength PT Goal 1 Goal / Goal Update Increase strength of L shoulder, to 3+/5 improve posture and use of L arm for home and self care tasks: 12-20-24 progress goal not met continue towards Target Visit 10
--- NOTE | 2024-12-20 14:02 | PTOPPROG ---
Assessment and note entered by Octavia Eid, PT Assessment Status Progress ICD-10 Condition Codes (PT) Pain in left shoulder M25.512 Onset June 2024 Subjective Information shoulder still giving me problems; therapy not really made any difference yet on shoulder; PAIN range 6-7/10 in the past week: lateral, posterior shoulder and under arm/medial humerus reports with sleepin-4 x/night due to shoulder pain; pain increase with rolling onto L side decrease pain: heat, mineral ice rub/cream, meds Assessment PT Clinical Summary Erica has received 4 PT sessions. She called and canceled 2 appointments. Compared to the initial evaluation: pain from 4-10/10 to 6-7/10; self assessment with DASH: from 61 to 52% limitation in activity level; active and passive ROM of L shoulder is the same, except active abduction increased by 5'; continues to have pain over anterior, lateral, posterior shoulder and medial upper humerus areas, with sleep disruption, awakening 3-4x/night. Education for HEP and posture/positioning of shoulder. The goals were partially met. She has only had 4 sessions. Continue PT. Plan of Care Interventions Electrical Stimulation,Hot Pack/Cold Pack,Manual Therapy,Neuro Re-education,Patient/Caregiver Education,Therapeutic Activities,Therapeutic Exercise,Ultrasound,Other Other Interventions taping PT Services Indicated Yes Treatment Frequency and 1-2x/wk for 6 visits Duration These treatments will address the objective and functional deficits as defined above. The patient will be advanced safely and appropriately in order for the patient to progress towards his/her prior level of function. Additional exercises will be introduced and as well as a comprehensive home exercise program upon discharge, if needed, ?to ensure carryover of functional gains achieved in the clinic. This treatment plan has been reviewed and agreement upon by the patient.
--- NOTE | 2024-12-26 14:10 | PCPTNOTE ---
Pt called to cancel her appointment today due to being ill
[2025-01-09 13:00] VITALS: BP_SYST 80
--- NOTE | 2025-01-09 13:45 | OPREHPOC ---
Outpatient Therapy Plan of Care This is a Multidisciplinary Plan of Care that may contain components documented by all disciplines (PT, OT, and ST.) PT Problem 1 PT Problem #1 Knowledge Deficit PT Goal 1 Goal / Goal Update *independent with HEP 12-20-24 progress goal met continue to progress HEP and education 01-09-25 d/c goal met Target Visit 10 Progress Met PT Problem 2 PT Problem #2 Pain PT Goal 1 Goal / Goal Update * pt report pain at worst rating of 7/10 12-20-24 progress goal met NEW goal: * decrease pain to 5/10 at worst 01-09-25 d/c goal not met, 6/10 is worst Target Visit 10 Progress Not Met PT Goal 2 Goal / Goal Update *with sleeping, awaken 1x/night due to shoulder pain 12-20-24 progress goal not met continue towards 01-09-25 d/c goal not met, improved to 2-3x/night Target Visit 10 Progress Not Met PT Problem 3 PT Problem #3 Impaired Flexibility PT Goal 1 Goal / Goal Update *increase ROM of L shoulder to improve use of L arm in standing: active 1* flexion 90' 2* abduction 80' 3* IR- reach to L SIJ 4* ER- reach to back of head 12-20-24 progress goal not met 01-09-25 d/c goals 1,2 met Target Visit 10 Progress Partially Met PT Problem 4 PT Problem #4 Impaired Strength PT Goal 1 Goal / Goal Update Increase strength of L shoulder, to 3+/5 improve posture and use of L arm for home and self care tasks: 12-20-24 progress goal not met continue towards 01-09-25 d/c goal not met Target Visit 10 Progress Not Met
--- NOTE | 2025-01-09 13:45 | PTOPDC ---
Assessment and note entered by Octavia Eid, PT Assessment Status Discharge ICD-10 Condition Codes (PT) Pain in left shoulder M25.512 Onset June 2024 Subjective Information shoulder is getting a little better, have been going to the chiropractor for neck & back pain and adjustments to neck and acupuncture for weight loss; have been using my arm for laundry and mowing yard; can do Ok as long as keep arm at her side and do not reach up; doing the exercises at home; want to stop therapy and just go to the chiropractor; does not have a follow up appointment with dr jon. Reported Pain Level Pain Score Self Report Pain Score Self Report Additional Pain Score Comments pain range in the past week 5-6/10; top of L shoulder decrease pain: tylenol with arthritis, recliner chair with massage increase pain: carry anything, raise arm over 90' angle with sleeping, awaken 2-3 x/night with rolling over onto L side Assessment PT Clinical Summary Erica has received 9 PT sessions. Compared to the last assessment: pain rating from 6-7/10 to 5-6/10; self assessment DASH rating from 52 to 32% limitation in activity level; with sleeping, reports awakening 3-4x/night to now 2-3 x/night due to pain; slight increase in shoulder flexion and abduction active ROM, with IR and ER ranges the same; education for HEP and posture. Active ROM in standing: L shoulder flexion 95', abduction 80', IR- reach behind back, palm to lateral hip and ER- reaching towards back of head- palm to ear. All motions increase her shoulder pain. The goals were partially met. Discharge PT. She is to continue with her home exercises and follow up with her medical provider. Plan of Care PT Services Indicated No
== END 2025-01-09 15:12 | disposition home or self-care (01) ==
LOC: ANHPT 13:00
PROVIDERS: PCP Physician Assistant; Visit Provider Physician Assistant
DX: M25.512 Pain in left shoulder (principal)
CPT/HCPCS: 97014; 97110; 97140; 97161; 97530; G0283

== ENCOUNTER 2025-03-06 17:35 | Emergency (ER) | payer OTHER, SELFPAY ==
[2025-03-06 17:44] VITALS: BP 132/82; PULSE 89; RESP 16; TEMP 36.6; O2SAT 97
[2025-03-06 17:51] LABS: EDUAAPPEAR Clear; EDUABILI Negative (Negative); EDUABLOOD 1+ (Negative); EDUACOLOR1 Yellow; EDUAGLUCOSE 2+ (Negative); EDUAKETONE Negative (Negative); EDUALEUKO Negative (Negative); EDUANITRATE Negative (Negative); EDUAPH 5.5; EDUAPROTEIN Negative (Negative); EDUASPGRAVITY 1.020; EDUAUROBILI 0.2
[2025-03-06 18:01] LABS: EDUAAPPEAR Cloudy; EDUABILI 2+ (Negative); EDUABLOOD 3+ (Negative); EDUACOLOR1 Yellow; EDUAGLUCOSE 3+ (Negative); EDUAKETONE Trace (Negative); EDUALEUKO Trace (Negative); EDUANITRATE Negative (Negative); EDUAPH 6.0; EDUAPROTEIN 3+ (Negative); EDUASPGRAVITY 1.030; EDUAUROBILI 1.0
--- NOTE | 2025-03-06 18:04 | ED_ITS ---
HPI - Female Genitourinary General Chief complaint: Urogenital-Female Stated complaint: UTI Time Seen by Provider: 03/06/25 18:04 Source: patient Mode of arrival: ambulatory Limitations: no limitations History of Present Illness HPI Narrative: 54-year-old female presents with complaint of urinary frequency, urgency, dysuria starting this morning. Afebrile. No abdominal or back pain. Denies nausea vomiting. All systems reviewed and negative except as noted above. Related Data Home Medications ?Medication ?Instructions ?Recorded ?Confirmed ?Last Taken ?Type albuterol sulfate 2.5 mg/3 mL 2.5 mg inhalation Q4H PRN SOB 05/20/22 11/27/23 Unknown History (0.083 %) solution for nebulization celecoxib 100 mg capsule 100 mg PO BID 05/20/22 11/27/23 Unknown History amlodipine 5 mg tablet 5 mg PO DAILY 02/21/23 11/27/23 Unknown History losartan 100 mg tablet 100 mg PO DAILY 02/21/23 11/27/23 Unknown History zafirlukast 10 mg tablet 20 mg PO BID 02/21/23 11/27/23 Unknown History atorvastatin 20 mg tablet 20 mg DIRECTED 11/27/23 11/27/23 Unknown History empagliflozin 25 mg tablet 25 mg DIRECTED 11/27/23 11/27/23 Unknown History (Jardiance) pantoprazole 40 mg tablet,delayed 40 mg PO DIRECTED 11/27/23 11/27/23 Unknown History release acetaminophen 500 mg capsule 500 mg PO ONCE 03/06/25 Unknown History metformin 500 mg tablet mg 03/06/25 Unknown History nortriptyline 25 mg capsule mg 03/06/25 Unknown History Allergies Allergy/AdvReac Type Severity Reaction Status Date / Time iodine Allergy Unknown Rash Verified 03/06/25 18:16 latex Allergy Unknown Unknown Verified 03/06/25 18:16 Penicillins Allergy Unknown Unknown Verified 03/06/25 18:16 Bumble Bee Allergy Unknown UNKNOWN Uncoded 03/06/25 18:16 Review of Systems Review of Systems: CONSTITUTIONAL: Denies fever, chills, or sweats. EYES: Denies visual changes, redness, or discharge. ENT: Denies rhinorrhea, congestion, sore throat, or otalgia. CARDIOVASCULAR: Denies chest pain, palpitations, or edema. RESPIRATORY: Denies cough or dyspnea. GASTROINTESTINAL: Denies abdominal pain, nausea, vomiting, or diarrhea. GENITOURINARY: Reports dysuria urgency frequency. Denies hematuria. SKIN: Denies rash or itching. MUSCULOSKELETAL: Denies back pain, joint pain, or myalgia. NEUROLOGIC: Denies headache, numbness, or weakness. PSYCHIATRIC: Denies anxiety or depression. All other systems reviewed are negative, except as documented in HPI. [facility] Past Medical History Medical History Abnormality of pancreatic duct Asthma Bronchitis Chronic back pain Depression Gastroesophageal reflux disease Hypertension Morbid obesity Osteoarthritis Pneumonia Surgical History Surgical History History of arthroscopy of right knee History of cervical discectomy History of cholecystectomy History of fusion of cervical spine History of hysterectomy History of placement of ear tubes History of tonsillectomy History of tubal ligation Family History Family History Mother Hypertension Social History Social History Social History: Surrogate medical decision maker: Ale Hinojosa, daughter. Code status: Full code. Smoking status: Never smoker Alcohol intake: former Substance use: never Substance use type: does not use Lack of Transportation: No Lack of Food: Never True Current Housing: I Have Housing Concerned About Future Housing: No Difficulty Paying Gas/Electric Bills: No Difficulty Paying for Meds: No Currently Unemployed: No Education: High School Diploma/GED Difficulty w/ Childcare or Family Care: No Additional living arrangements comments: . Four children. Additional occupation/education comments: Disabled. Spiritual care concerns: No Comments At time of signature, agree with nursing past medical, surgical, social and family history. There is no relevant family history pertinent to the presenting complaint. Exam Narrative: GENERAL: This is a well-nourished, well-developed patient, in no apparent di stress. HEAD: normocephalic, atraumatic. EYES: PERRL. Sclera clear/white. Vision is grossly intact. EARS: External ears normal NOSE: External nose normal NECK: Neck supple, non-tender without lymphadenopathy, masses or thyromegaly. CARDIOVASCULAR: Regular rate and rhythm without murmurs, gallops, or rubs. RESPIRATORY: Clear to auscultation. Breath sounds equal bilaterally. No wheezes, rales, or rhonchi. SKIN: warm, Dry, intact with no suspicious lesions or rash, good texture and turgor. NEURO: awake, alert, and oriented to person, place and time. There were no obvious focal neurologic abnormalities. EXTREMITIES: No joint tenderness, effusion, or edema noted. No calf tenderness. Negative Homans sign bilaterally. BACK: No CVA tenderness. Course Course Level of Care: Express Care Visit Vital Signs Vital signs: Vital Signs Temperature 36.6 C 03/06/25 17:44 Pulse Rate 89 03/06/25 17:44 Respiratory Rate 16 03/06/25 17:44 Blood Pressure 132/82 03/06/25 17:44 Pulse Oximetry 97 03/06/25 17:44 Oxygen Delivery Room Air 03/06/25 17:44 Temperature 36.6 C 03/06/25 17:44 Pulse Rate 89 03/06/25 17:44 Respiratory Rate 16 03/06/25 17:44 Blood Pressure 132/82 03/06/25 17:44 Pulse Oximetry 97 03/06/25 17:44 Oxygen Delivery Room Air 03/06/25 17:44 reviewed MDM - Female Genitourinary MDM Narrative Medical decision making narrative: urinalysis positive leukocytes, protein, blood. Urine culture ordered. Will treat patient with antibiotic due to urinary symptoms. Recommend follow-up with primary care physician if symptoms not improving. Will go to the ER for any worsening of symptoms. Patient is alert, nontoxic. Differential Diagnosis Differential diagnosis: Likely urinary tract infection Lab Data Labs: Lab Results 03/06/25 03/06/25 Range/Units 17:48 17:57 POC Urine Color Yellow Yellow POC Urine Clarity Clear Cloudy POC Urine pH 5.5 6.0 POC Ur Specif [place] 1.020 1.030 POC Urine Protein Negative 3+ (Negative) POC Ur Glucose (UA) 2+ 3+ (Negative) POC Urine Ketones Negative Trace (Negative) POC Urine Blood 1+ 3+ (Negative) POC Urine Nitrite Negative Negative (Negative) POC Urine Bilirubin Negative 2+ (Negative) POC Urine Urobilinogen 0.2 1.0 POC U Leukocyte Esteras Negative Trace (Negative) Discharge Plan Discharge Clinical Impression: Urinary tract infection Qualifiers: Urinary tract infection type: site unspecified Hematuria presence: with hematuria Qualified Code(s): N39.0 - Urinary tract infection, site not specified Patient Disposition: Home Condition: Stable Instructions: Antibiotic Form, Urinary Tract Infection in Women (ED) Additional Instructions: Take antibiotic as prescribed until gone. Take [id number] Azo, as directed on packaging, to treat urinary symptoms. Drink at least 64 oz of water a day. See your doctor symptoms are not improving. Patient Language: Ukrainian Prescriptions: New nitrofurantoin monohyd/m-cryst [Macrobid] 100 mg capsule 100 mg PO Q12H 7 Days Qty: 14 0RF No Action pantoprazole 40 mg tablet,delayed release (DR/EC) 40 mg PO DIRECTED atorvastatin 20 mg tablet 20 mg DIRECTED Jardiance 25 mg tablet 25 mg DIRECTED phenazopyridine [Pyridium] 200 mg tablet 200 mg PO TID PRN (Reason: pain) 3 Days Qty: 10 0RF sulfamethoxazole-trimethoprim [Bactrim DS] 800-160 mg tablet 1 tablet PO Q12H 5 Days Qty: 10 0RF metformin 500 mg tablet nortriptyline 25 mg capsule zafirlukast 10 mg Tablet 20 mg PO BID Rx Instructions: must be taken on empty stomach, at least 1 hr before or 2 hrs after a meal/food amlodipine 5 mg tablet 5 mg PO DAILY losartan 100 mg tablet 100 mg PO DAILY sertraline 50 mg Tablet 50 mg PO DAILY albuterol sulfate 2.5 mg /3 mL (0.083 %) solution for nebulization 2.5 mg inhalation Q4H PRN (Reason: SOB) celecoxib 100 mg capsule 100 mg PO BID cephalexin 500 mg capsule 500 mg PO Q6H Qty: 28 0RF Follow-up/Referrals: Nathalie,CAROLYNE Arredondo [Primary Care Provider] - Time of Disposition: 18:13
== END 2025-03-06 18:35 | disposition home or self-care (01) ==
PROVIDERS: Emergency Provider Nurse Practitioner Family; PCP Physician Assistant
DX: N39.0 Urinary tract infection, site not specified (principal); R31.9 Hematuria, unspecified; J45.909 Unspecified asthma, uncomplicated; I10 Essential (primary) hypertension; K21.9 Gastro-esophageal reflux disease without esophagitis; M19.90 Unspecified osteoarthritis, unspecified site; E66.01 Morbid (severe) obesity due to excess calories; Z68.43 Body mass index [BMI] 50.0-59.9, adult
CPT/HCPCS: 81003; 87086; 99213; G0463